=== PATIENT | female | born 1955 | race Caucasian/White ===

== ENCOUNTER 2020-10-17 10:05 | Outpatient (REF) | payer MEDICARE, SELFPAY ==
[2020-10-17 11:19] LABS: Hematocrit 37.9 % (37-47); Hemoglobin 12.9 g/dl (12.0-16.0); Mean Corpuscular Hemoglobin 30.8 pg (27.0-33.0); Mean Corpuscular Volume 90.5 fL (80-98); Platelet Count 267 X10*3/uL (160-400); Red Blood Count 4.19 X10*6/uL (4.20-5.50); Red Cell Distribution Width 12.7 % (11.0-16.0); White Blood Count 9.3 X10*3/uL (4.8-10.8)
[2020-10-17 11:50] LABS: Alanine Aminotransferase 40 U/L (0-31); Albumin Level 4.4 g/dL (3.5-5.0); Alkaline Phosphatase 100 U/L (39-117); Anion Gap 13 (12-20); Aspartate Amino Transferase 27 U/L (5-31); Bilirubin Total 0.7 mg/dL (0.0-1.0); Blood Urea Nitrogen 16 mg/dL (9-16); Calcium 10.2 mg/dL (8.4-10.2); Carbon Dioxide 29 mmol/L (22-29); Chloride 102 mmol/L (96-108); Cholesterol 154 mg/dL; Estimated Glomerular Filt Rate 55; Glucose Fasting 92 mg/dL (60-99); HDL Cholesterol 38 mg/dL; LDL Cholesterol Calculated 83 mg/dl; Potassium 3.5 mmol/l (3.3-5.1); Sodium 140 mmol/L (135-145); Total Protein 7.3 g/dL (6.5-8.0); Triglycerides 168 mg/dL
[2020-10-17 11:52] LABS: Glucose Urine UA NEG (NEG); Leukocyte Esterase Urine TRACE (NEG); Nitrite Urine NEG (NEG); PH 6.5 (5.0-8.0); Urine Blood NEG (NEG); Urine Ketones NEG (NEG); Urine Protein NEG (NEG-TRACE)
[2020-10-17 11:54] LABS: Appearance Urine HAZY; Color Urine YELLOW
[2020-10-17 11:56] LABS: Thyroid Stimulating Hormone 2.03 uIU/mL (0.32-4.0)
[2020-10-17 12:24] LABS: Bacteria Urine TRACE /LPF; RBC Urine 0-2 /HPF (0); Squamous Epithelial Cell Urine 1+ /LPF
== END 2020-10-17 10:06 | disposition home or self-care (01) ==
LOC: HO.HMGCLDS 10:05
PROVIDERS: PCP Internal Medicine; Visit Provider Internal Medicine
DX: E78.5 Hyperlipidemia, unspecified (principal); I10 Essential (primary) hypertension
CPT/HCPCS: 36415; 80053; 80061; 81001; 84443; 85027

== ENCOUNTER 2021-09-12 12:16 | Outpatient (REF) | payer MEDICARE, SELFPAY ==
--- NOTE | ~2021-09-12 | MM_ITS ---
EXAMINATION: MM SCREENING DIGITAL BREAST TOMOSYNTHESIS, BILATERAL CLINICAL INFORMATION: Screening. Asymptomatic. The lifetime risk of breast cancer based on the Tyrer-Cuzick Model is 8%. COMPARISON: Mammography: 05/11/2020, 09/18/2018, 09/08/2018, 12/05/2016 TECHNIQUE: Digital breast tomosynthesis is performed in both the craniocaudal and mediolateral oblique views along with computer-aided detection (CAD). Synthesized 2D images are generated from the tomosynthesis. FINDINGS: There are scattered areas of fibroglandular density (ACR BI-RADS breast composition Category b). There are no significant masses, abnormal calcifications, or other abnormalities. Parenchymal pattern is similar to prior studies. The axilla are unremarkable. The skin contours are smooth. MM/MM tomosynthesis screening BI IMPRESSION: No mammographic evidence of malignancy. ASSESSMENT: BI-RADS 1: Negative RECOMMENDATION: Routine annual mammography screening. This patient's information was entered into a reminder system with a target due date for their next mammogram.
== END 2021-09-12 12:17 | disposition home or self-care (01) ==
LOC: HO.MAMMO 12:16
PROVIDERS: PCP Internal Medicine; Visit Provider Internal Medicine
DX: Z12.31 Encounter for screening mammogram for malignant neoplasm of breast (principal)
CPT/HCPCS: 77063; 77067

== ENCOUNTER 2021-10-09 10:03 | Outpatient (REF) | payer MEDICARE, SELFPAY ==
[2021-10-09 11:54] LABS: Hematocrit 38.3 % (37.0-47.0); Hemoglobin 12.9 g/dl (12.0-16.0); Mean Corpuscular HGB Conc 33.7 g/dl (31.0-35.0); Mean Corpuscular Hemoglobin 30.4 pg (27.0-33.0); Mean Corpuscular Volume 90.3 fL (80.0-98.0); Platelet Count 303 X10*3/uL (160-400); Red Blood Count 4.24 X10*6/uL (4.20-5.50); Red Cell Distribution Width 13.1 % (11.0-16.0)
[2021-10-09 12:06] LABS: Appearance Urine CLEAR; Color Urine YELLOW; Glucose Urine UA NEG (NEG); Leukocyte Esterase Urine NEG (NEG); Nitrite Urine NEG (NEG); Urine Blood NEG (NEG); Urine Ketones NEG (NEG); Urine Protein NEG (NEG-TRACE)
[2021-10-09 12:16] LABS: Alanine Aminotransferase 31 U/L (0-31); Albumin Level 4.3 g/dL (3.5-5.0); Alkaline Phosphatase 97 U/L (39-117); Anion Gap 15 (12-20); Aspartate Amino Transferase 23 U/L (5-31); Bilirubin Total 0.9 mg/dL (0.0-1.0); Blood Urea Nitrogen 13 mg/dL (9-16); Calcium 10.3 mg/dL (8.4-10.2); Carbon Dioxide 28 mmol/L (22-29); Chloride 101 mmol/L (96-108); Cholesterol 154 mg/dL; Estimated Glomerular Filt Rate 57; Glucose Fasting 90 mg/dL (60-99); HDL Cholesterol 36 mg/dL; LDL Cholesterol Calculated 78 mg/dl; Potassium 3.3 mmol/L (3.3-5.1); Sodium 141 mmol/L (135-145); Total Protein 7.1 g/dL (6.5-8.0); Triglycerides 202 mg/dL
[2021-10-09 12:37] LABS: TSH reflex Free T4 1.76 uIU/mL (0.32-4.0)
[2021-10-09 12:42] LABS: RBC Urine 0 /HPF (0); Squamous Epithelial Cell Urine TRACE /LPF; WBC Urine 0-2 /HPF (0-4)
== END 2021-10-09 10:04 | disposition home or self-care (01) ==
LOC: HO.HMGCLDS 10:03
PROVIDERS: PCP Internal Medicine; Visit Provider Internal Medicine
DX: Z00.00 Encounter for general adult medical examination without abnormal findings (principal); E78.5 Hyperlipidemia, unspecified; I10 Essential (primary) hypertension
CPT/HCPCS: 36415; 80053; 80061; 81001; 84443; 85027

== ENCOUNTER 2022-02-08 12:53 | Outpatient (REF) | payer MEDICARE, SELFPAY ==
[2022-02-08 13:47] LABS: MANUAL DIFF FLAG NO
[2022-02-08 13:52] LABS: Basophils Percent Auto 0.4 % (0-2); Eosinophils Absolute Auto 0.2 X10*3/uL (0.0-0.4); Eosinophils Percent Auto 2.1 % (0-4); Hemoglobin 13.5 g/dl (12.0-16.0); Imm Gran Abs Auto 0.04 X10*3/uL (0.00-0.03); Imm Gran Pct Auto 0.5 % (0.0-0.4); Lymphocytes Absolute Auto 2.8 X10*3/uL (1.2-4.9); Lymphocytes Percent Auto 36.7 % (20-40); Mean Corpuscular HGB Conc 33.8 g/dl (31.0-35.0); Mean Corpuscular Hemoglobin 30.1 pg (27.0-33.0); Mean Corpuscular Volume 89.1 fL (80.0-98.0); Mean Platelet Volume 10.1 fL (9.4-12.3); Monocytes Absolute Auto 0.7 X10*3/uL (0.1-1.2); Monocytes Percent Auto 9.3 % (2-11); Neutrophils Absolute Auto 3.9 x10*3/uL (2.0-8.3); Platelet Count 277 X10*3/uL (160-400); Red Blood Count 4.49 X10*6/uL (4.20-5.50); Red Cell Distribution Width 12.6 % (11.0-16.0); White Blood Count 7.7 X10*3/uL (4.8-10.8)
[2022-02-08 13:54] LABS: Appearance Urine CLEAR; Color Urine YELLOW; Glucose Urine UA NEG (NEG); Leukocyte Esterase Urine NEG (NEG); Nitrite Urine NEG (NEG); Specific Gravity - Urine <= 1.005 (1.005-1.025); Urine Blood NEG (NEG); Urine Ketones NEG (NEG); Urine Protein NEG (NEG-TRACE)
[2022-02-08 14:23] LABS: Anion Gap 13 (12-20); Blood Urea Nitrogen 15 mg/dL (9-16); Calcium 10.3 mg/dL (8.4-10.2); Carbon Dioxide 31 mmol/L (22-29); Chloride 100 mmol/L (96-108); Estimated Glomerular Filt Rate > 60; Iron 88 mcg/dL (30-160); Potassium 3.3 mmol/L (3.3-5.1); Sodium 141 mmol/L (135-145)
[2022-02-08 14:34] LABS: Percent Iron Saturation 24 % (15-50); Total Iron Binding Capacity 370 mcg/dL (228-428); Unsaturated Iron Binding 282 ug/dL
[2022-02-08 14:41] LABS: Vitamin D 25-OH Total 32.9 ng/mL (>30)
[2022-02-08 14:53] LABS: RBC Urine 0 /HPF (0); Squamous Epithelial Cell Urine TRACE /LPF; WBC Urine 0 /HPF (0-4)
[2022-02-11 16:12] LABS: Calcium (PTHI) 10.2 mg/dL (8.6-10.4); PTHI 39 pg/mL (16-77)
== END 2022-02-08 12:54 | disposition home or self-care (01) ==
LOC: HO.HMGCLDS 12:53
PROVIDERS: PCP Internal Medicine; Visit Provider Internal Medicine Nephrology
DX: I10 Essential (primary) hypertension (principal)
CPT/HCPCS: 36415; 80051; 81001; 82306; 82310; 82565; 83540; 83970; 84520; 85025

== ENCOUNTER 2022-03-14 11:47 | Outpatient (REF) | payer MEDICARE, SELFPAY ==
[2022-03-14 14:20] LABS: Anion Gap 11 (12-20); Blood Urea Nitrogen 15 mg/dL (9-16); Calcium 10.1 mg/dL (8.4-10.2); Carbon Dioxide 30 mmol/L (22-29); Chloride 101 mmol/L (96-108); Estimated Glomerular Filt Rate > 60; Potassium 3.4 mmol/L (3.3-5.1); Sodium 139 mmol/L (135-145)
== END 2022-03-14 11:48 | disposition home or self-care (01) ==
LOC: HO.HMGCLDS 11:47
PROVIDERS: PCP Internal Medicine; Visit Provider Internal Medicine Nephrology
DX: I10 Essential (primary) hypertension (principal)
CPT/HCPCS: 36415; 80051; 82310; 82565; 84520

== ENCOUNTER 2022-09-18 14:16 | Outpatient (REF) | payer MEDICARE, SELFPAY ==
--- NOTE | ~2022-09-18 | MM_ITS ---
EXAMINATION: MM SCREENING DIGITAL BREAST TOMOSYNTHESIS, BILATERAL CLINICAL INFORMATION: Screening. Asymptomatic. The lifetime risk of breast cancer based on the Tyrer-Cuzick Model is 8%. COMPARISON: Mammography: 09/12/2021, 05/11/2020, 09/18/2018, 09/08/2018 TECHNIQUE: Digital breast tomosynthesis is performed in both the craniocaudal and mediolateral oblique views along with computer-aided detection (CAD). Synthesized 2D images are generated from the tomosynthesis. FINDINGS: There are scattered areas of fibroglandular density (ACR BI-RADS breast composition Category b). There are no significant masses, abnormal calcifications, or other abnormalities. Parenchymal pattern is similar to prior studies. There is no developing density or architectural abnormality. The axilla and skin contours are unremarkable. No significant changes. MM/MM tomosynthesis screening BI IMPRESSION: No mammographic evidence of malignancy. ASSESSMENT: BI-RADS 1: Negative RECOMMENDATION: Routine annual mammography screening. This patient's information was entered into a reminder system with a target due date for their next mammogram.
== END 2022-09-18 14:17 | disposition home or self-care (01) ==
LOC: HO.MAMMO 14:16
PROVIDERS: Visit Provider Internal Medicine
DX: Z12.31 Encounter for screening mammogram for malignant neoplasm of breast (principal)
CPT/HCPCS: 77063; 77067

== ENCOUNTER 2022-10-08 10:24 | Outpatient (REF) | payer MEDICARE, SELFPAY ==
[2022-10-08 11:32] LABS: MANUAL DIFF FLAG NO
[2022-10-08 11:51] LABS: Basophils Percent Auto 0.5 % (0-2); Eosinophils Absolute Auto 0.2 X10*3/uL (0.0-0.4); Eosinophils Percent Auto 2.4 % (0-4); Imm Gran Abs Auto 0.03 X10*3/uL (0.00-0.03); Imm Gran Pct Auto 0.4 % (0.0-0.4); Lymphocytes Absolute Auto 2.6 X10*3/uL (1.2-4.9); Lymphocytes Percent Auto 33.2 % (20-40); Mean Corpuscular HGB Conc 34.2 g/dl (31.0-35.0); Mean Corpuscular Hemoglobin 30.4 pg (27.0-33.0); Mean Platelet Volume 10.1 fL (9.4-12.3); Monocytes Absolute Auto 0.7 X10*3/uL (0.1-1.2); Monocytes Percent Auto 8.9 % (2-11); Neutrophils Absolute Auto 4.2 x10*3/uL (2.0-8.3); Neutrophils Percent Auto 54.6 % (45-73); Platelet Count 250 X10*3/uL (160-400); Red Blood Count 4.27 X10*6/uL (4.20-5.50); Red Cell Distribution Width 13.1 % (11.0-16.0); White Blood Count 7.8 X10*3/uL (4.8-10.8)
[2022-10-08 12:01] LABS: Appearance Urine Clear; Color Urine Yellow; Glucose Urine UA Negative (Negative); Leukocyte Esterase Urine Small (1+) (Negative); Nitrite Urine Negative (Negative); PH 7.5 (5.0-9.0); Specific Gravity - Urine <= 1.005 (1.005-1.025); UMIC TRIGGER UA YES; Urine Blood Negative (Negative); Urine Ketones Negative (Negative); Urine Protein Negative (Neg-Trace)
[2022-10-08 12:31] LABS: Alanine Aminotransferase 40 U/L (0-31); Albumin Level 4.3 g/dL (3.5-5.0); Alkaline Phosphatase 104 U/L (39-117); Anion Gap 15 (12-20); Aspartate Amino Transferase 29 U/L (5-31); Blood Urea Nitrogen 16 mg/dL (9-16); Calcium 9.8 mg/dL (8.4-10.2); Carbon Dioxide 28 mmol/L (22-29); Chloride 103 mmol/L (96-108); Cholesterol 146 mg/dL; Estimated Glomerular Filt Rate > 60; Glucose Fasting 90 mg/dL (60-99); HDL Cholesterol 38 mg/dL; LDL Cholesterol Calculated 73 mg/dl; Potassium 3.5 mmol/L (3.3-5.1); Sodium 142 mmol/L (135-145); TSH reflex Free T4 1.84 uIU/mL (0.32-4.0); Triglycerides 176 mg/dL; Vitamin D 25-OH Total 45.5 ng/mL (>30)
[2022-10-08 12:35] LABS: Hyaline Casts Urine 0-2 /LPF (0-2); RBC Urine 0-2 /HPF (0-2)
[2022-10-08 12:36] LABS: Renal Epithelial Cells Urine Present
[2022-10-08 12:41] LABS: Bacteria Urine None Seen (None Seen)
== END 2022-10-08 10:25 | disposition home or self-care (01) ==
LOC: HO.HMGCLDS 10:24
PROVIDERS: PCP Internal Medicine; Visit Provider Internal Medicine
DX: E78.5 Hyperlipidemia, unspecified (principal); I10 Essential (primary) hypertension
CPT/HCPCS: 36415; 80053; 80061; 81001; 82306; 84443; 85025

== ENCOUNTER 2022-12-03 12:58 | Outpatient (REF) | payer MEDICARE, SELFPAY ==
--- NOTE | ~2022-12-03 | MM_ITS ---
EXAMINATION: BONE DENSITOMETRY CLINICAL INDICATION: Asymptomatic menopausal state. COMPARISON: None (current study represents initial baseline exam). TECHNIQUE: Using a [employer] Online DXA System (software version: 13.1) manufactured by [employer], dual-energy x-ray absorptiometry was performed of the lumbar spine and left hip. The images are of good technical quality. Summary results are attached. FINDINGS: AP SPINE L1-L4: BMD 1.130 g/cm2, Z-score 0.9, T-score -0.4, normal. LEFT FEMUR, NECK: BMD 0.643 g/cm2, Z-score -1.5, T-score -2.8, osteoporosis. LEFT FEMUR, TOTAL: BMD 0.806 g/cm2, Z-score -0.5, T-score -1.6, osteopenia. IDENTIFIED RISK FACTORS: Menopause. HISTORY OF FRACTURE: None listed. MEDICATIONS: Calcium supplement and/or multivitamin. Vitamin D. MM/XR DEXA axial skeleton IMPRESSION: 1. DIAGNOSIS: Osteoporosis based on the lowest T-score value of -2.8 in the femoral neck applying World Health Organization criteria. 2. 10-YEAR FRACTURE RISK PREDICTION, FRAX: According to the guidelines, FRAX calculation should only be performed on patients in the osteopenia bone density category.?Therefore, FRAX was not performed on this patient.? 3. Treatment Recommendations: NOF guidelines recommend consideration for treatment in postmenopausal women and men age 50 and older presenting with the following: -A hip or vertebral (clinical or morphometric) fracture. -T-score less than or equal to -2.5 at the femoral neck or spine after appropriate evaluation to exclude secondary causes. -Low bone mass at the hip or spine and a 10-year fracture probability by FRAX of greater than or equal to 3% for hip fracture or greater than or equal to 20% for major osteoporotic fracture based on the [place] adapted WHO algorithm. 4. Other Recommendations: All treatment decisions require clinical judgment and consideration of individual patient factors, including patient preferences, comorbidities, previous drug use, risk factors not captured in the FRAX model (e.g. frailty, falls, vitamin D deficiency, increased bone turnover, interval significant decline in bone density) and possible under or overestimation of fracture risk by FRAX. Additional medical evaluation for secondary cause of low bone mineral density may be appropriate. FUTURE SCAN RECOMMENDATION: People with diagnosed cases of osteoporosis or at high risk for fracture should have regular bone mineral density tests. For patients eligible for Medicare, routine testing is allowed once every 2 years. The testing frequency can be increased to one year for patients who have rapidly progressing disease, those who are receiving or discontinuing medical therapy to restore bone mass, or have additional risk factors.
== END 2022-12-03 12:59 | disposition home or self-care (01) ==
LOC: HO.MAMMO 12:58
PROVIDERS: PCP Internal Medicine; Visit Provider Internal Medicine
DX: Z13.820 Encounter for screening for osteoporosis (principal); Z78.0 Asymptomatic menopausal state
CPT/HCPCS: 77080

== ENCOUNTER 2022-12-03 13:36 | Outpatient (REF) | payer MEDICARE, SELFPAY ==
[2022-12-03 16:48] LABS: Alanine Aminotransferase 38 U/L (0-31); Albumin Level 4.4 g/dL (3.5-5.0); Alkaline Phosphatase 117 U/L (39-117); Aspartate Amino Transferase 30 U/L (5-31); Bilirubin Direct 0.3 mg/dL (0.0-0.5); Total Protein 7.2 g/dL (6.5-8.0)
[2022-12-04 08:10] LABS: HBc Num1 0.08 S/CO (0.00-0.79); HBsAGNum1 0.42 S/CO (0.00-0.99); Hepatitis A Antibody IgM 0.11 Index (0-0.79); Hepatitis B Core Antibody Nonreactive (Nonreactive); Hepatitis B Surface Antigen Negative (Negative); ~HepC Num1 0.06 S/CO (0.00-0.79); ~Hepatitis A Antibody IgM Nonreactive (Nonreactive); ~Hepatitis B Surface Antibody NONREACTIVE (Nonreactive); ~Hepatitis C Antibody Nonreactive (Nonreactive)
== END 2022-12-03 13:37 | disposition home or self-care (01) ==
LOC: HO.HMGCLDS 13:36
PROVIDERS: PCP Internal Medicine; Visit Provider Internal Medicine
DX: Z00.00 Encounter for general adult medical examination without abnormal findings (principal); I10 Essential (primary) hypertension; E78.5 Hyperlipidemia, unspecified; Z78.0 Asymptomatic menopausal state; Z11.59 Encounter for screening for other viral diseases
CPT/HCPCS: 36415; 80076; 86704; 86706; 86709; 86803; 87340

== ENCOUNTER 2023-02-06 10:30 | Outpatient (REF) | payer MEDICARE, SELFPAY ==
[2023-02-06 14:14] LABS: Appearance Urine Clear; Color Urine Yellow; Glucose Urine UA Negative (Negative); Leukocyte Esterase Urine Moderate (2+) (Negative); Nitrite Urine Negative (Negative); UMIC TRIGGER UA YES; Urine Blood Negative (Negative); Urine Ketones Trace mg/dL (Negative); Urine Protein Trace mg/dL (Neg-Trace)
[2023-02-06 14:31] LABS: Bacteria Urine Trace (None Seen); Hyaline Casts Urine 0-2 /LPF (0-2); RBC Urine 0-2 /HPF (0-2); WBC Urine 21-50 /HPF (0-5)
[2023-02-06 14:58] LABS: Anion Gap 13 (12-20); Blood Urea Nitrogen 14 mg/dL (9-16); Calcium 9.8 mg/dL (8.4-10.2); Carbon Dioxide 30 mmol/L (22-29); Chloride 106 mmol/L (96-108); Estimated Glomerular Filt Rate 60; Potassium 3.8 mmol/L (3.3-5.1); Sodium 145 mmol/L (135-145)
[2023-02-06 15:11] LABS: Creatinine Urine 221.26 mg/dL; Protein/Creatinine Ratio, Ur 0.07 (<0.2); Total Protein Urine Random 16 mg/dL (<12)
[2023-02-06 15:17] LABS: Vitamin D 25-OH Total 41.8 ng/mL (>30)
[2023-02-10 14:04] LABS: Calcium (PTHI) 10.2 mg/dL (8.6-10.4); PTHI 21 pg/mL (16-77)
== END 2023-02-06 10:31 | disposition home or self-care (01) ==
LOC: HO.HMGCLDS 10:30
PROVIDERS: PCP Internal Medicine; Visit Provider Internal Medicine Nephrology
DX: E87.5 Hyperkalemia (principal); E55.9 Vitamin D deficiency, unspecified
CPT/HCPCS: 36415; 80051; 81001; 82306; 82310; 82565; 83970; 84156; 84520

== ENCOUNTER 2023-10-20 11:11 | Outpatient (REF) | payer MEDICARE, SELFPAY | END 2023-10-20 11:12 | disposition home or self-care (01) | LOC: HO.MAMMO 11:11 | PROVIDERS: PCP Internal Medicine; Visit Provider Internal Medicine | DX: Z12.31 Encounter for screening mammogram for malignant neoplasm of breast (principal) | CPT/HCPCS: 77063; 77067 ==

== ENCOUNTER → 2023-10-20 11:15 | Outpatient (BNV) | payer MEDICARE, SELFPAY | PROVIDERS: PCP Internal Medicine; Visit Provider Radiology Diagnostic Radiology | DX: Z12.31 Encounter for screening mammogram for malignant neoplasm of breast (principal) | CPT/HCPCS: 77063; 77067 ==

== ENCOUNTER 2024-02-06 10:48 | Outpatient (REF) | payer MEDICARE, SELFPAY ==
[2024-02-06 13:18] LABS: MANUAL DIFF FLAG NO
[2024-02-06 13:36] LABS: Basophils Percent Auto 0.5 % (0-2); Eosinophils Absolute Auto 0.2 X10*3/uL (0.0-0.4); Eosinophils Percent Auto 2.3 % (0-4); Hematocrit 38.9 % (37.0-47.0); Hemoglobin 13.2 g/dl (12.0-16.0); Imm Gran Abs Auto 0.04 X10*3/uL (0.00-0.03); Imm Gran Pct Auto 0.5 % (0.0-0.4); Lymphocytes Absolute Auto 2.9 X10*3/uL (1.2-4.9); Lymphocytes Percent Auto 36.7 % (20-40); Mean Corpuscular HGB Conc 33.9 g/dl (31.0-35.0); Mean Corpuscular Volume 88.4 fL (80.0-98.0); Mean Platelet Volume 10.2 fL (9.4-12.3); Monocytes Absolute Auto 0.7 X10*3/uL (0.1-1.2); Monocytes Percent Auto 9.2 % (2-11); Neutrophils Percent Auto 50.8 % (45-73); Platelet Count 266 X10*3/uL (160-400); Red Cell Distribution Width 12.8 % (11.0-16.0); White Blood Count 7.9 X10*3/uL (4.8-10.8)
[2024-02-06 13:37] LABS: Appearance Urine Clear; Color Urine Yellow; Glucose Urine UA Negative (Negative); Leukocyte Esterase Urine Moderate (2+) (Negative); Nitrite Urine Negative (Negative); PH 7.5 (5.0-9.0); UMIC TRIGGER UA YES; Urine Blood Negative (Negative); Urine Ketones Negative (Negative); Urine Protein Negative (Neg-Trace)
[2024-02-06 13:41] LABS: Bacteria Urine None Seen (None Seen); Hyaline Casts Urine 0-2 /LPF (0-2); RBC Urine 0-2 /HPF (0-2); Squamous Epithelial Cell Urine 0-2 /HPF (0-2)
[2024-02-06 13:55] LABS: Anion Gap 13 (12-20); Blood Urea Nitrogen 18 mg/dL (9-16); Calcium 9.9 mg/dL (8.4-10.2); Carbon Dioxide 27 mmol/L (22-29); Chloride 104 mmol/L (96-108); Estimated Glomerular Filt Rate 55; Iron 94 mcg/dL (30-160); Percent Iron Saturation 31 % (15-50); Potassium 3.3 mmol/L (3.3-5.1); Sodium 141 mmol/L (135-145); Total Iron Binding Capacity 308 mcg/dL (228-428); Unsaturated Iron Binding 214 ug/dL
[2024-02-06 14:02] LABS: Ferritin 59 ng/mL (10-250); Vitamin D 25-OH Total 98.4 ng/mL (>30)
[2024-02-06 14:10] LABS: Parathyroid Hormone Intact 58.3 pg/mL (8.7-77.1)
[2024-02-06 14:32] LABS: Creatinine Urine 89.47 mg/dL; Total Protein Urine Random < 7 mg/dL (<12)
== END 2024-02-06 10:49 | disposition home or self-care (01) ==
LOC: HO.HMGCLDS 10:48
PROVIDERS: PCP Internal Medicine; Visit Provider Internal Medicine Nephrology
DX: I10 Essential (primary) hypertension (principal); E55.9 Vitamin D deficiency, unspecified; D50.9 Iron deficiency anemia, unspecified
CPT/HCPCS: 36415; 80051; 81001; 82306; 82310; 82565; 82570; 82728; 83540; 83970; 84156; 84520; 84550; 85025

== ENCOUNTER 2024-03-10 10:07 | Outpatient (REF) | payer MEDICARE, SELFPAY ==
[2024-03-10 13:12] LABS: MANUAL DIFF FLAG NO
[2024-03-10 13:27] LABS: Basophils Percent Auto 0.5 % (0-2); Eosinophils Absolute Auto 0.2 X10*3/uL (0.0-0.4); Eosinophils Percent Auto 2.7 % (0-4); Hematocrit 39.9 % (37.0-47.0); Hemoglobin 13.8 g/dl (12.0-16.0); Imm Gran Abs Auto 0.02 X10*3/uL (0.00-0.03); Imm Gran Pct Auto 0.3 % (0.0-0.4); Lymphocytes Percent Auto 41.5 % (20-40); Mean Corpuscular HGB Conc 34.6 g/dl (31.0-35.0); Mean Corpuscular Hemoglobin 30.7 pg (27.0-33.0); Mean Corpuscular Volume 88.9 fL (80.0-98.0); Mean Platelet Volume 10.1 fL (9.4-12.3); Monocytes Absolute Auto 0.7 X10*3/uL (0.1-1.2); Monocytes Percent Auto 9.1 % (2-11); Neutrophils Absolute Auto 3.3 x10*3/uL (2.0-8.3); Neutrophils Percent Auto 45.9 % (45-73); Platelet Count 249 X10*3/uL (160-400); Red Blood Count 4.49 X10*6/uL (4.20-5.50); Red Cell Distribution Width 13.1 % (11.0-16.0); White Blood Count 7.3 X10*3/uL (4.8-10.8)
[2024-03-10 13:32] LABS: Appearance Urine Clear; Color Urine Yellow; Glucose Urine UA Negative (Negative); Leukocyte Esterase Urine Moderate (2+) (Negative); Nitrite Urine Negative (Negative); UMIC TRIGGER UA YES; Urine Blood Negative (Negative); Urine Ketones Negative (Negative); Urine Protein Negative (Neg-Trace)
[2024-03-10 13:43] LABS: Bacteria Urine None Seen (None Seen); Hyaline Casts Urine 0-2 /LPF (0-2); RBC Urine 0-2 /HPF (0-2)
[2024-03-10 14:07] LABS: Anion Gap 13 (12-20); Blood Urea Nitrogen 14 mg/dL (9-16); Calcium 9.9 mg/dL (8.4-10.2); Carbon Dioxide 25 mmol/L (22-29); Chloride 107 mmol/L (96-108); Estimated Glomerular Filt Rate > 60; Ferritin 47 ng/mL (10-250); Iron 97 mcg/dL (30-160); Percent Iron Saturation 32 % (15-50); Potassium 3.6 mmol/L (3.3-5.1); Sodium 141 mmol/L (135-145); Total Iron Binding Capacity 306 mcg/dL (228-428); Unsaturated Iron Binding 209 ug/dL; Uric Acid 4.7 mg/dL (2.4-5.7); Vitamin D 25-OH Total 69.8 ng/mL (>30)
[2024-03-10 14:12] LABS: Parathyroid Hormone Intact 47.9 pg/mL (8.7-77.1)
[2024-03-10 14:29] LABS: Creatinine Urine 173.16 mg/dL; Protein/Creatinine Ratio, Ur 0.07 (<0.2); Total Protein Urine Random 12 mg/dL (<12)
== END 2024-03-10 10:08 | disposition home or self-care (01) ==
LOC: HO.HMGCLDS 10:07
PROVIDERS: PCP Internal Medicine; Visit Provider Internal Medicine Nephrology
DX: D50.9 Iron deficiency anemia, unspecified (principal); I10 Essential (primary) hypertension; E55.9 Vitamin D deficiency, unspecified
CPT/HCPCS: 36415; 80051; 81001; 82306; 82310; 82565; 82570; 82728; 83540; 83970; 84156; 84520; 84550; 85025

== ENCOUNTER 2024-03-30 09:45 | Outpatient (REF) | payer MEDICARE, SELFPAY ==
[2024-03-30 13:10] LABS: MANUAL DIFF FLAG NO
[2024-03-30 13:33] LABS: Basophils Percent Auto 0.4 % (0-2); Eosinophils Absolute Auto 0.2 X10*3/uL (0.0-0.4); Eosinophils Percent Auto 2.4 % (0-4); Hematocrit 40.6 % (37.0-47.0); Hemoglobin 13.9 g/dl (12.0-16.0); Imm Gran Abs Auto 0.02 X10*3/uL (0.00-0.03); Imm Gran Pct Auto 0.3 % (0.0-0.4); Lymphocytes Absolute Auto 2.7 X10*3/uL (1.2-4.9); Lymphocytes Percent Auto 38.4 % (20-40); Mean Corpuscular HGB Conc 34.2 g/dl (31.0-35.0); Mean Corpuscular Hemoglobin 30.8 pg (27.0-33.0); Mean Corpuscular Volume 89.8 fL (80.0-98.0); Monocytes Absolute Auto 0.6 X10*3/uL (0.1-1.2); Neutrophils Absolute Auto 3.5 x10*3/uL (2.0-8.3); Neutrophils Percent Auto 49.5 % (45-73); Platelet Count 224 X10*3/uL (160-400); Red Blood Count 4.52 X10*6/uL (4.20-5.50); Red Cell Distribution Width 12.9 % (11.0-16.0)
[2024-03-30 13:34] LABS: Basophils Absolute Auto 0.1 X10*3/uL (0.0-0.2); Basophils Percent Auto 0.7 % (0-2); Eosinophils Absolute Auto 0.2 X10*3/uL (0.0-0.4); Hematocrit 40.7 % (37.0-47.0); Hemoglobin 13.8 g/dl (12.0-16.0); Imm Gran Abs Auto 0.01 X10*3/uL (0.00-0.03); Imm Gran Pct Auto 0.1 % (0.0-0.4); Lymphocytes Absolute Auto 2.8 X10*3/uL (1.2-4.9); Lymphocytes Percent Auto 38.5 % (20-40); Mean Corpuscular HGB Conc 33.9 g/dl (31.0-35.0); Mean Corpuscular Hemoglobin 30.3 pg (27.0-33.0); Mean Corpuscular Volume 89.5 fL (80.0-98.0); Monocytes Absolute Auto 0.6 X10*3/uL (0.1-1.2); Monocytes Percent Auto 8.1 % (2-11); Neutrophils Absolute Auto 3.7 x10*3/uL (2.0-8.3); Neutrophils Percent Auto 49.6 % (45-73); Platelet Count 230 X10*3/uL (160-400); Red Blood Count 4.55 X10*6/uL (4.20-5.50); White Blood Count 7.4 X10*3/uL (4.8-10.8)
[2024-03-30 13:55] LABS: Appearance Urine Clear; Color Urine Yellow; Glucose Urine UA Negative (Negative); Leukocyte Esterase Urine Trace (Negative); Nitrite Urine Negative (Negative); PH 7.5 (5.0-9.0); Specific Gravity - Urine <= 1.005 (1.005-1.025); UMIC TRIGGER UA YES; Urine Blood Negative (Negative); Urine Ketones Negative (Negative); Urine Protein Negative (Neg-Trace)
[2024-03-30 13:56] LABS: Anion Gap 15 (12-20); Blood Urea Nitrogen 11 mg/dL (9-16); Calcium 10.1 mg/dL (8.4-10.2); Carbon Dioxide 23 mmol/L (22-29); Chloride 109 mmol/L (96-108); Estimated Glomerular Filt Rate > 60; Potassium 3.8 mmol/L (3.3-5.1); Sodium 143 mmol/L (135-145)
[2024-03-30 13:58] LABS: Iron 89 mcg/dL (30-160); Percent Iron Saturation 27 % (15-50); Total Iron Binding Capacity 333 mcg/dL (228-428); Unsaturated Iron Binding 244 ug/dL; Uric Acid 3.7 mg/dL (2.4-5.7)
[2024-03-30 14:01] LABS: Alanine Aminotransferase 26 U/L (0-31); Albumin Level 4.3 g/dL (3.5-5.0); Alkaline Phosphatase 89 U/L (39-117); Anion Gap 15 (12-20); Aspartate Amino Transferase 22 U/L (5-31); Bilirubin Total 0.8 mg/dL (0.0-1.0); Blood Urea Nitrogen 10 mg/dL (9-16); Calcium 9.8 mg/dL (8.4-10.2); Carbon Dioxide 23 mmol/L (22-29); Chloride 108 mmol/L (96-108); Cholesterol 140 mg/dL (<200); Estimated Glomerular Filt Rate > 60; Glucose Fasting 91 mg/dL (60-99); HDL Cholesterol 39 mg/dL (>40); LDL Cholesterol Calculated 71 mg/dL (<100); Potassium 3.7 mmol/L (3.3-5.1); Sodium 142 mmol/L (135-145); Total Protein 7.4 g/dL (6.5-8.0); Triglycerides 151 mg/dL (<150)
[2024-03-30 14:04] LABS: Bacteria Urine None Seen (None Seen); Hyaline Casts Urine 0-2 /LPF (0-2); RBC Urine 0-2 /HPF (0-2); Squamous Epithelial Cell Urine 0-2 /HPF (0-2); WBC Urine 0-5 /HPF (0-5)
[2024-03-30 14:09] LABS: Vitamin D 25-OH Total 53.1 ng/mL (>30)
[2024-03-30 14:16] LABS: Parathyroid Hormone Intact 72.4 pg/mL (8.7-77.1)
[2024-03-30 14:17] LABS: Ferritin 38 ng/mL (10-250); Vitamin D 25-OH Total 67.8 ng/mL (>30)
[2024-03-30 14:21] LABS: Creatinine Urine 33.82 mg/dL; Total Protein Urine Random < 7 mg/dL (<12)
[2024-03-30 14:37] LABS: Albumin Level 4.4 g/dL (3.5-5.0); Anion Gap 15 (12-20); Blood Urea Nitrogen 11 mg/dL (9-16); Calcium 9.9 mg/dL (8.4-10.2); Carbon Dioxide 22 mmol/L (22-29); Chloride 109 mmol/L (96-108); Estimated Glomerular Filt Rate > 60; Glucose Random 89 mg/dL (60-115); Phosphorus 2.7 mg/dL (2.7-4.5); Potassium 3.8 mmol/L (3.3-5.1); Sodium 142 mmol/L (135-145)
[2024-04-03 11:53] LABS: Renin 0.19 ng/mL/h (0.25-5.82)
== END 2024-03-30 09:46 | disposition home or self-care (01) ==
LOC: HO.HMGCLDS 09:45
PROVIDERS: PCP Internal Medicine; Referring Provider Internal Medicine Nephrology; Visit Provider Internal Medicine
DX: F41.9 Anxiety disorder, unspecified (principal); F32.9 Major depressive disorder, single episode, unspecified; I10 Essential (primary) hypertension; E55.9 Vitamin D deficiency, unspecified; D50.9 Iron deficiency anemia, unspecified; Z78.0 Asymptomatic menopausal state
CPT/HCPCS: 36415; 80051; 80053; 80061; 81001; 81003; 82040; 82088; 82306; 82310; 82565; 82570; 82728; 82947; 83540; 83970; 84100; 84156; 84244; 84443; 84520; 84550; 85025

== ENCOUNTER 2024-04-01 12:57 | Outpatient (AMB) | payer MEDICARE, SELFPAY ==
[2024-04-01 13:02] VITALS: BP 134/80; PULSE 75; O2SAT 98; BMI 30.5
--- NOTE | 2024-04-01 13:02 | MHC.PC.OV ---
Vital Signs 04/01/24 13:02 Height 5 ft 2 in Weight 167 lb BMI 30.5 BP 134/80 Blood Pressure Location Lt brachial Position Sitting Pulse 75 Pulse Source Pulse Oximeter Pulse Oximetry (%) 98 Oxygen Delivery Method Room Air Intake Visit Reasons: Annual PE, Discuss/Bill ACP Intake Note: Pt is here today for PE. Allergies No Known Allergies Allergy (Verified 04/01/24 13:08) Medication List - Last Reconciled 04/01/24 by Radha Gao MD alendronate 70 mg PO QWEEK amlodipine 5 mg PO DAILY atorvastatin 80 mg PO DAILY flu vacc [id number](65yr up)-PF mL IM losartan 100 mg PO DAILY metoprolol succinate ER 200 mg PO DAILY spironolactone 25 mg PO DAILY Tobacco use date assessed: 04/01/24 Fall risk assessment: No Falls in past year Last assessed Fall Risk: 04/01/24 Dental Screening Dental Screen Date: 04/01/24 Did you have a dental visit in the last 12 months?: Yes Did you have a dental problem in the last 6 months where you did not have access to dental care?: No Was dental information given to patient?: Patient has dentist HPI Annual PE, Discuss/Bill ACP HPI Details Initiated the conversation about Advanced Directives. Advanced Directives help? patients prepare for current and future decisions about their medical treatment? and place of care. Discussed with patient that it is a process where a patients? current condition and prognosis are reviewed, their wishes for information? regarding their illness are elicited, and likely medical dilemmas are presented? and options discussed. The form can be amended as needed, reviewed yearly and? make changes as needed IPPE/AWV ? year old presents? for her ? Annual? Wellness Visit, initial visit.? Medical / Social History Reviewed? Past Medical History ?Yes? . ? [place]? of Care / Care Team list updated ?Yes . ? Surgical/Hospitalization? History ?Yes . ? Current Medications? (including OTC and supplements) ?Yes . ? Family History ?Yes? . ? Tobacco? Control form ?Yes . ? AUDIT-C (Alcohol use) form? ?Yes . ? Illicit drug use in Social? History ?Yes . ? Current diagnosis of? depression? ?No ? Appropriate PHQ2/PHQ9? completed ?Yes . ? Data entered by ?Medical? Pheresis Nurse and reviewed by provider ? Fall Risk ? Fall? History? Have you had any falls with? injury in the past year? ?No . ? Have you had two or more? falls in the past year? ?No . ? Fall Risk Assessment: ?No? falls in the past year . ? HRA filled out by? the patient, reviewed by Provider and scanned. ? IPPE/AWV ? Balance? [place]? ?Yes . ? Tandem? walk ?Yes . ? Walk and? Turn ?Yes . ? Rise from? sit to stand ?Yes . ?Vision? Corrective? lens ?Yes ? Vision? screen ? Up-to-date, has an appointment [] for vision? screening and glaucoma screening ?Hearing? Whisper? test ?pass .? Initiated the conversation about Advanced Directives. Advanced Directives help? patients prepare for current and future decisions about their medical treatment? and place of care. Discussed with patient that it is a process where a patients? current condition and prognosis are reviewed, their wishes for information? regarding their illness are elicited, and likely medical dilemmas are presented? and options discussed. The form can be amended as needed, reviewed yearly and? make changes as needed Written? Plan?Completed. See Patient? Documents. [facility] Medical History (Updated 04/01/24 @ 15:03 by Radha Gao MD) Mammogram normal Normal colonoscopy Annual physical exam Normal Pap smear Anxiety and depression Hyperlipidemia Migraines HTN (hypertension) Surgical History H/O colonoscopy No pertinent past surgical history Family History Father Type 2 diabetes mellitus HTN (hypertension) Stroke Mother No problems noted. Brother HTN (hypertension) Alcoholism Brother History of heart attack Brother Cancer Maternal Grandfather Alcoholism Son No problems noted. Brother No problems noted. Social History Housing: House Patient Tobacco Use Status: Never used Tobacco e-Cigarette/Vaping Use: Never Used service: No Current occupational status: employed Cognitive needs: No Hearing needs: No Vision needs: Yes Questionnaire PHQ-9 Over the last 2 weeks, how often have you been bothered by any of the following problems? 1. Little interest or pleasure in doing things: not at all 2. Feeling down, depressed, or hopeless: not at all 3. Trouble falling or staying asleep, or sleeping too much: several days 4. Feeling tired or having little energy: not at all 5. Poor appetite or overeating: not at all 6. Feeling bad about yourself - or that you are a failure or have let yourself or your family down: not at all 7. Trouble concentrating on things, such as reading the newspaper or watching television: not at all 8. Moving or speaking so slowly that other people could have noticed. Or the opposite - being so fidgety or restless that you have been moving around a lot more than usual: not at all 9. Thoughts that you would be better off or of hurting yourself in some way: not at all Total score: 1 Depression Screening Interpretation: Negative Depression Screening Done: Yes Source: Developed by Drs. Manas Reddy, Bessy Hopkins, Kimani Stuart and colleagues, with an educational charly from [employer]. Thrive Questionnaire Date Thrive assessed: 04/01/24 I am a: Patient What is your living situation today?: I have a steady place to live Within the past 12 months, did the food you bought not last and you didn't have the money to get more?: Never true Within the past 12 months, did you worry whether your food would run out before you got money to buy more?: Never true Do you have trouble paying for medicines?: No Do you have trouble getting transportation to medical appointments?: No Do you have trouble paying your heating and electricity bill?: No Do you have trouble taking care of your child, family member or friend?: No Do you have trouble with day-to-day activities such as bathing, preparing meals, shopping, managing finances, etc.?: No Are you currently unemployed and looking for a job?: No Are you interested in more education?: No Please select the resources that you would like help with: None THRIVE Score: 0 AUDIT C Alcohol Use Questionnaire (AUDIT-C) 1. How often do you have a drink containing alcohol?: Monthly or less 2. How many drinks containing alcohol do you have on a typical day when you are drinking?: 1 or 2 3. How often do you have six or more drinks on one occasion?: Never Total Score: 1 JESSICA-7 AMB Questionnaire JESSICA-7 Date JESSICA - 7 assessed: 04/01/24 Feeling nervous, anxious, or on edge: 1 = Several days Not being able to stop or control worryin = Several days Worrying too much about different things: 1 = Several days Trouble relaxin = Several days Being so restless that it is hard to sit still: 1 = Several days Becoming easily annoyed or irritable: 1 = Several days Feeling afraid as if something awful might happen: 0 = Not at all Total JESSICA-7 score (0-4 normal; 5-9 mild; 10-14 moderate; 15-21 severe): 6 Source: Developed by Drs. Manas Reddy, Bessy Hopkins, Kimani Stuart and colleagues, with an educational charly from [employer]. Review of Systems Const All systems reviewed & are unremarkable except as noted in HPI and below Reports no additional complaints Eyes Reports no additional complaints ENT Reports no additional complaints Card Reports no additional complaints Resp Reports no additional complaints GI Reports no additional complaints Reports no additional complaints Musc Reports no additional complaints Physical exam (Primary Care) Vital Signs: Last Vital Signs Pulse 75 04/01/24 13:02 BP 134/80 04/01/24 13:02 Pulse Ox 98 04/01/24 13:02 Oxygen Delivery Method Room Air 04/01/24 13:02 BMI result Body Mass Index 30.5 Tobacco/Smoking Status: Tobacco use Status Tobacco use date assessed 04/01/24 04/01/24 13:12 Patient Tobacco Use Status Never used Tobacco 04/01/24 13:03 e-Cigarette/Vaping Use Never Used 04/01/24 13:03 PHQ-9: PHQ-9 Score PHQ-9: Total score 1 04/01/24 13:23 Depression Screening Interpretation: Negative Thrive Assessment: Date of Thrive Assessment Date Thrive assessed 04/01/24 04/01/24 13:12 Const General: no acute distress HENMT Head: Yes normal to inspection Face and sinus: Yes normal facial exam Throat: Yes posterior oropharynx normal Eyes General: appearance normal, both eyes and all related structures Neck Neck: Yes no lymphadenopathy and Yes supple Resp Effort & Inspection: normal respiratory effort Auscultation: clear to auscultation bilaterally Cardio Rhythm: regular rhythm Heart sounds: S1 normal heart sound present and S2 normal heart sound present GI Inspection: Yes normal to inspection Percussion: Yes normal to percussion Auscultation: normal bowel sounds Assessment and Plan Assessment & Plan (1) HTN (hypertension): Comment: f/u with nephrology, hydrochlorothiazide was discontinued because of hyperkalemia 03/17 Code(s): I10 - Essential (primary) hypertension Plan: Blood pressure is elevated and spironolactone 25 will be added to current medications. She was advised to stop taking potassium supplement and check BMP in 2 weeks. Patient will follow-up in 1 month (2) Osteoporosis: Comment: DEXA 12/16 T score -2.8 L femoral neck, started Fosamax 01/16 Code(s): M81.0 - Age-related osteoporosis without current pathological fracture Plan: Continue vitamin-D Fosamax and regular exercise (3) Hyperlipidemia: Code(s): E78.5 - Hyperlipidemia, unspecified Plan: Continue atorvastatin (4) Annual physical exam: Code(s): Z00.00 - Encounter for general adult medical examination without abnormal findings Plan: Well-balanced diet regular physical activity discussed with the patient she is up-to-date with mammogram colonoscopy Orders: Orders Basic Metabolic Panel 2 Weeks I10 - Essential (primary) hypertension Medications: New spironolactone 25 mg PO DAILY 30 tabs 2RF Coding Level of Care Code Est Pt Prev Care >65y(57334) Diagnoses HTN (hypertension) I10 Osteoporosis M81.0 Hyperlipidemia E78.5 Annual physical exam Z00.00
== END 2024-04-01 14:00 | disposition home or self-care (01) ==
PROVIDERS: Visit Provider Internal Medicine
DX: I10 Essential (primary) hypertension (principal); M81.0 Age-related osteoporosis without current pathological fracture; E78.5 Hyperlipidemia, unspecified; Z00.00 Encounter for general adult medical examination without abnormal findings
CPT/HCPCS: 99397

== ENCOUNTER 2024-06-03 09:46 | Outpatient (REF) | payer MEDICARE, SELFPAY ==
[2024-06-03 13:44] LABS: Anion Gap 14 (12-20); Blood Urea Nitrogen 18 mg/dL (9-16); Calcium 10.4 mg/dL (8.4-10.2); Carbon Dioxide 24 mmol/L (22-29); Chloride 106 mmol/L (96-108); Estimated Glomerular Filt Rate 54; Glucose Random 88 mg/dL (60-115); Potassium 4.1 mmol/L (3.3-5.1); Sodium 140 mmol/L (135-145)
== END 2024-06-03 09:47 | disposition home or self-care (01) ==
LOC: HO.HMGCLDS 09:46
PROVIDERS: PCP Internal Medicine; Visit Provider Internal Medicine
DX: I10 Essential (primary) hypertension (principal)
CPT/HCPCS: 36415; 80048

== ENCOUNTER 2024-06-07 12:50 | Outpatient (AMB) | payer MEDICARE, SELFPAY ==
--- NOTE | 2024-06-07 12:51 | MHC.PC.OV ---
Vital Signs 06/07/24 12:52 Height 5 ft 2 in Weight 165 lb BMI 30.2 BP 134/80 Blood Pressure Location Rt brachial Position Sitting Pulse 77 Pulse Source Pulse Oximeter Pulse Oximetry (%) 96 Oxygen Delivery Method Room Air Intake Visit Reasons: 6weeks follow up Intake Note: Pt is here today for 6 weeks follow up visit. Allergies No Known Allergies Allergy (Verified 06/07/24 12:53) Medication List - Last Reconciled 06/07/24 by Radha Gao MD alendronate 70 mg PO QWEEK amlodipine 5 mg PO DAILY atorvastatin 80 mg PO DAILY flu vacc [id number](65yr up)-PF mL IM losartan 100 mg PO DAILY metoprolol succinate ER 200 mg PO DAILY spironolactone 25 mg PO DAILY Tobacco use date assessed: 04/01/24 Dental Screening Dental Screen Date: 04/01/24 HPI 6weeks follow up HPI Details Pt presents for f/u HTN, hyperlipid, osteoporosis, stable on meds. [facility] Medical History (Updated 06/07/24 @ 13:26 by Radha Gao MD) Mammogram normal Normal colonoscopy Annual physical exam Normal Pap smear Anxiety and depression Hyperlipidemia Migraines HTN (hypertension) Surgical History H/O colonoscopy No pertinent past surgical history Family History Father Type 2 diabetes mellitus HTN (hypertension) Stroke Mother No problems noted. Brother HTN (hypertension) Alcoholism Brother History of heart attack Brother Cancer Maternal Grandfather Alcoholism Son No problems noted. Brother No problems noted. Social History Housing: House Patient Tobacco Use Status: Never used Tobacco e-Cigarette/Vaping Use: Never Used service: No Current occupational status: employed Cognitive needs: No Hearing needs: No Vision needs: Yes Questionnaire PHQ-9 Over the last 2 weeks, how often have you been bothered by any of the following problems? 1. Little interest or pleasure in doing things: not at all 2. Feeling down, depressed, or hopeless: not at all 3. Trouble falling or staying asleep, or sleeping too much: not at all 4. Feeling tired or having little energy: not at all 5. Poor appetite or overeating: not at all 7. Trouble concentrating on things, such as reading the newspaper or watching television: not at all 8. Moving or speaking so slowly that other people could have noticed. Or the opposite - being so fidgety or restless that you have been moving around a lot more than usual: not at all 9. Thoughts that you would be better off or of hurting yourself in some way: not at all Depression Screening Interpretation: Negative Depression Screening Done: Yes Source: Developed by Drs. Manas Reddy, Bessy Hopkins, Kimani Stuart and colleagues, with an educational charly from [employer]. Thrive Questionnaire Date Thrive assessed: 06/07/24 I am a: Patient What is your living situation today?: I have a steady place to live Within the past 12 months, did the food you bought not last and you didn't have the money to get more?: I choose not to answer this question Within the past 12 months, did you worry whether your food would run out before you got money to buy more?: I choose not to answer this question Do you have trouble paying for medicines?: I choose not to answer this question Do you have trouble getting transportation to medical appointments?: I choose not to answer this question Do you have trouble paying your heating and electricity bill?: I choose not to answer this question Do you have trouble taking care of your child, family member or friend?: I choose not to answer this question Do you have trouble with day-to-day activities such as bathing, preparing meals, shopping, managing finances, etc.?: I choose not to answer this question Are you currently unemployed and looking for a job?: No Are you interested in more education?: No Please select the resources that you would like help with: Housing/Fpc Currently or been in a relationship where the following occur: I choose not to answer THRIVE Score: 0 JESSICA-7 AMB Questionnaire JESSICA-7 Date JESSICA - 7 assessed: 06/07/24 Source: Developed by Drs. Manas Reddy, Bessy Hopkins, Kimani Stuart and colleagues, with an educational charly from [employer]. Review of Systems Const All systems reviewed & are unremarkable except as noted in HPI and below Reports no additional complaints Eyes Reports no additional complaints ENT Reports no additional complaints Card Reports no additional complaints Resp Reports no additional complaints GI Reports no additional complaints Physical exam (Primary Care) Vital Signs: Last Vital Signs Pulse 77 06/07/24 12:52 BP 134/80 06/07/24 12:52 Pulse Ox 96 06/07/24 12:52 Oxygen Delivery Method Room Air 06/07/24 12:52 BMI result Body Mass Index 30.2 Tobacco/Smoking Status: Tobacco use Status Tobacco use date assessed 04/01/24 06/07/24 12:56 Patient Tobacco Use Status Never used Tobacco 06/07/24 12:56 e-Cigarette/Vaping Use Never Used 06/07/24 12:56 Depression Screening Interpretation: Negative Thrive Assessment: Date of Thrive Assessment Date Thrive assessed 06/07/24 06/07/24 12:56 Currently or been in a relationship where the following occur: I choose not to answer Const General: no acute distress HENMT Head: Yes normal to inspection Ears: hearing grossly normal bilaterally Face and sinus: Yes normal facial exam Eyes General: appearance normal, both eyes and all related structures Neck Neck: Yes supple Resp Effort & Inspection: normal respiratory effort Auscultation: clear to auscultation bilaterally Cardio Rhythm: regular rhythm Heart sounds: S1 normal heart sound present and S2 normal heart sound present Assessment and Plan Assessment & Plan (1) HTN (hypertension): Comment: f/u with nephrology, hydrochlorothiazide was discontinued because of hypokalemia 03/17 Code(s): I10 - Essential (primary) hypertension Plan: Continue current medications. Patient was advised to take amlodipine and metoprolol at night to avoid drop in blood pressure in the middle of the day. (2) Hyperlipidemia: Code(s): E78.5 - Hyperlipidemia, unspecified Plan: Continue statin (3) Osteoporosis: Comment: DEXA 12/16 T score -2.8 L femoral neck, started Fosamax 01/16 Code(s): M81.0 - Age-related osteoporosis without current pathological fracture Plan: Continue Fosamax, follow-up in 4 months with a fasting labs before Orders: Orders Comprehensive [place]. Panel Fast 4 Months E78.5 - Hyperlipidemia, unspecified, I10 - Essential (primary) hypertension, M81.0 - Age-related osteoporosis without current pathological fracture Complete Blood Count Auto Diff 4 Months I10 - Essential (primary) hypertension Medications: Refilled spironolactone 25 mg PO DAILY 90 tabs 3RF amlodipine 5 mg PO DAILY 90 tabs 3RF Coding Level of Care Code Est Pt Level 4 (97433) Diagnoses HTN (hypertension) I10 Hyperlipidemia E78.5 Osteoporosis M81.0
[2024-06-07 12:52] VITALS: BP 134/80; PULSE 77; O2SAT 96; BMI 30.2
== END 2024-06-07 13:28 | disposition home or self-care (01) ==
PROVIDERS: PCP Internal Medicine; Visit Provider Internal Medicine
DX: I10 Essential (primary) hypertension (principal); E78.5 Hyperlipidemia, unspecified; M81.0 Age-related osteoporosis without current pathological fracture
CPT/HCPCS: 99214

== ENCOUNTER 2024-10-07 10:29 | Outpatient (REF) | payer MEDICARE, SELFPAY ==
[2024-10-07 13:42] LABS: Basophils Absolute Auto 0.1 X10*3/uL (0.0-0.2); Basophils Percent Auto 0.7 % (0-2); Eosinophils Absolute Auto 0.2 X10*3/uL (0.0-0.4); Eosinophils Percent Auto 2.9 % (0-4); Hematocrit 44.2 % (37.0-47.0); Imm Gran Abs Auto 0.02 X10*3/uL (0.00-0.03); Imm Gran Pct Auto 0.3 % (0.0-0.4); Lymphocytes Absolute Auto 3.1 X10*3/uL (1.2-4.9); Lymphocytes Percent Auto 41.2 % (20-40); MANUAL DIFF FLAG SCAN; Mean Corpuscular HGB Conc 33.9 g/dl (31.0-35.0); Mean Corpuscular Hemoglobin 31.3 pg (27.0-33.0); Mean Corpuscular Volume 92.1 fL (80.0-98.0); Monocytes Absolute Auto 0.8 X10*3/uL (0.1-1.2); Monocytes Percent Auto 9.8 % (2-11); Neutrophils Absolute Auto 3.4 x10*3/uL (2.0-8.3); Neutrophils Percent Auto 45.1 % (45-73); PLT CLUMP 1; Red Cell Distribution Width 12.6 % (11.0-16.0); SCAN SMEAR FLAG 1
[2024-10-07 14:07] LABS: Albumin Level 4.2 g/dL (3.5-5.0); Alkaline Phosphatase 98 U/L (39-117); Anion Gap 14 (12-20); Aspartate Amino Transferase 45 U/L (5-31); Bilirubin Total 0.9 mg/dL (0.0-1.0); Blood Urea Nitrogen 11 mg/dL (9-16); Calcium 10.3 mg/dL (8.4-10.2); Carbon Dioxide 24 mmol/L (22-29); Chloride 107 mmol/L (96-108); Estimated Glomerular Filt Rate 56; Glucose Fasting 93 mg/dL (60-99); Potassium 3.9 mmol/L (3.3-5.1); Sodium 141 mmol/L (135-145); Total Protein 7.3 g/dL (6.5-8.0)
[2024-10-07 14:23] LABS: Mean Platelet Volume 11.5 fL (9.4-12.3); Platelet Count 179 X10*3/uL (160-400); White Blood Count 7.6 X10*3/uL (4.8-10.8)
[2024-10-07 14:24] LABS: SLIDE REVIEW VERIFIED
[2024-10-07 17:36] LABS: Alanine Aminotransferase 54 U/L (0-31)
== END 2024-10-07 10:30 | disposition home or self-care (01) ==
LOC: HO.HMGCLDS 10:29
PROVIDERS: PCP Internal Medicine; Visit Provider Internal Medicine
DX: I10 Essential (primary) hypertension (principal); E78.5 Hyperlipidemia, unspecified; M81.0 Age-related osteoporosis without current pathological fracture
CPT/HCPCS: 36415; 80053; 85025

== ENCOUNTER 2024-10-11 13:44 | Outpatient (AMB) | payer MEDICARE, SELFPAY ==
[2024-10-11 13:53] VITALS: BP 122/76; PULSE 77; O2SAT 96; BMI 30.7
--- NOTE | 2024-10-11 13:53 | MHC.PC.OV ---
Vital Signs 10/11/24 13:53 Height 5 ft 2 in Weight 168 lb BMI 30.7 BP 122/76 Blood Pressure Location Lt brachial Position Sitting Pulse 77 Pulse Source Pulse Oximeter Pulse Oximetry (%) 96 Oxygen Delivery Method Room Air Intake Visit Reasons: 4 month follow up Intake Note: Pt is here today for 4 months follow up visit. Allergies No Known Allergies Allergy (Verified 10/11/24 13:53) Tobacco use date assessed: 10/11/24 Fall risk assessment: No Falls in past year Last assessed Fall Risk: 10/11/24 Dental Screening Dental Screen Date: 04/01/24 HPI 4 month follow up HPI Details Pt presents for f/u HTN, hyperlipid, osteoporosis, stable on meds. [facility] Medical History (Updated 10/11/24 @ 14:22 by Radha Gao MD) Mammogram normal Normal colonoscopy Annual physical exam Normal Pap smear Anxiety and depression Hyperlipidemia Migraines HTN (hypertension) Surgical History H/O colonoscopy No pertinent past surgical history Family History Father Type 2 diabetes mellitus HTN (hypertension) Stroke Mother No problems noted. Brother HTN (hypertension) Alcoholism Brother History of heart attack Brother Cancer Maternal Grandfather Alcoholism Son No problems noted. Brother No problems noted. Social History Housing: House Patient Tobacco Use Status: Never used Tobacco e-Cigarette/Vaping Use: Never Used service: No Current occupational status: employed Cognitive needs: No Hearing needs: No Vision needs: Yes Questionnaire Thrive Questionnaire Date Thrive assessed: 06/07/24 I am a: Patient What is your living situation today?: I have a steady place to live Within the past 12 months, did the food you bought not last and you didn't have the money to get more?: I choose not to answer this question Within the past 12 months, did you worry whether your food would run out before you got money to buy more?: I choose not to answer this question Do you have trouble paying for medicines?: I choose not to answer this question Do you have trouble getting transportation to medical appointments?: I choose not to answer this question Do you have trouble paying your heating and electricity bill?: I choose not to answer this question Do you have trouble taking care of your child, family member or friend?: I choose not to answer this question Do you have trouble with day-to-day activities such as bathing, preparing meals, shopping, managing finances, etc.?: I choose not to answer this question Are you currently unemployed and looking for a job?: No Are you interested in more education?: No Please select the resources that you would like help with: None Currently or been in a relationship where the following occur: I choose not to answer THRIVE Score: 0 JESSICA-7 AMB Questionnaire JESSICA-7 Date JESSICA - 7 assessed: 06/07/24 Source: Developed by Drs. Manas Reddy, Bessy Hopkins, Kimani Stuart and colleagues, with an educational charly from [employer]. Review of Systems Const All systems reviewed & are unremarkable except as noted in HPI and below Eyes Reports no additional complaints ENT Reports no additional complaints Card Reports no additional complaints Resp Reports no additional complaints GI Reports no additional complaints Reports no additional complaints Physical exam (Primary Care) Vital Signs: Last Vital Signs Pulse 77 10/11/24 13:53 BP 122/76 10/11/24 13:53 Pulse Ox 96 10/11/24 13:53 Oxygen Delivery Method Room Air 10/11/24 13:53 BMI result Body Mass Index 30.7 Tobacco/Smoking Status: Tobacco use Status Tobacco use date assessed 10/11/24 10/11/24 13:58 Patient Tobacco Use Status Never used Tobacco 10/11/24 13:53 e-Cigarette/Vaping Use Never Used 10/11/24 13:53 Thrive Assessment: Date of Thrive Assessment Date Thrive assessed 06/07/24 10/11/24 13:53 Currently or been in a relationship where the following occur: I choose not to answer Const General: no acute distress HENMT Head: Yes normal to inspection Throat: Yes posterior oropharynx normal Neck Neck: Yes no lymphadenopathy Resp Effort & Inspection: normal respiratory effort Auscultation: clear to auscultation bilaterally Cardio Rhythm: regular rhythm Heart sounds: S1 normal heart sound present and S2 normal heart sound present GI Inspection: Yes normal to inspection Palpation (GI): Soft to palpation and No hepatosplenomegaly present Percussion: Yes normal to percussion Auscultation: normal bowel sounds Coding Level of Care Code Est Pt Level 4 (86834) Diagnoses HTN (hypertension) I10 Hyperlipidemia E78.5 Annual physical exam Z00. Osteoporosis M81.0 Elevated LFTs R79.89 Overweight E66.3 Assessment & Plan Assessment & Plan (1) HTN (hypertension): Comment: f/u with nephrology, hydrochlorothiazide was discontinued because of hypokalemia 03/17 Code(s): I10 - Essential (primary) hypertension Category: Medical Plan: Continue current medications (2) Hyperlipidemia: Code(s): E78.5 - Hyperlipidemia, unspecified Category: Medical Plan: Continue atorvastatin (3) Annual physical exam: Code(s): Z00.00 - Encounter for general adult medical examination without abnormal findings Category: Medical Plan: Return for physical in 6 months (4) Osteoporosis: Comment: DEXA 12/16 T score -2.8 L femoral neck, started Fosamax 01/16 Code(s): M81.0 - Age-related osteoporosis without current pathological fracture Category: Medical Plan: Continue Fosamax vitamin-D regular exercise recheck DEXA next year (5) Elevated LFTs: Comment: Abdominal ultrasound fatty liver 2017 Code(s): R79.89 - Other specified abnormal findings of blood chemistry Category: Medical Plan: Low simple carbohydrate diet increase physical activity weight loss discussed with the patient (6) Overweight: Code(s): E66.3 - Overweight Category: Medical Plan: Weight loss discussed with the patient Orders: Orders Complete Blood Count Auto Diff 6 Months E78.5 - Hyperlipidemia, unspecified, I10 - Essential (primary) hypertension, Z00.00 - Encounter for general adult medical examination without abnormal findings Lipid Panel 6 Months E78.5 - Hyperlipidemia, unspecified, I10 - Essential (primary) hypertension, Z00.00 - Encounter for general adult medical examination without abnormal findings TSH reflex Free T4 6 Months E78.5 - Hyperlipidemia, unspecified, I10 - Essential (primary) hypertension, Z00.00 - Encounter for general adult medical examination without abnormal findings Comprehensive [place]. Panel Fast 6 Months E78.5 - Hyperlipidemia, unspecified, I10 - Essential (primary) hypertension, Z00.00 - Encounter for general adult medical examination without abnormal findings
== END 2024-10-11 14:23 | disposition home or self-care (01) ==
PROVIDERS: PCP Internal Medicine; Visit Provider Internal Medicine
DX: I10 Essential (primary) hypertension (principal); E78.5 Hyperlipidemia, unspecified; Z00.00 Encounter for general adult medical examination without abnormal findings; M81.0 Age-related osteoporosis without current pathological fracture; R79.89 Other specified abnormal findings of blood chemistry; E66.3 Overweight

== ENCOUNTER → 2024-10-11 13:44 | Outpatient (BNVA) | payer MEDICARE, SELFPAY | PROVIDERS: PCP Internal Medicine; Visit Provider Internal Medicine | DX: I10 Essential (primary) hypertension (principal); E78.5 Hyperlipidemia, unspecified; M81.0 Age-related osteoporosis without current pathological fracture; R79.89 Other specified abnormal findings of blood chemistry; E66.3 Overweight | CPT/HCPCS: 99212 ==

== ENCOUNTER 2024-10-25 11:25 | Outpatient (REF) | payer MEDICARE, SELFPAY ==
--- NOTE | ~2024-10-25 | MM_ITS ---
EXAMINATION: MM SCREENING DIGITAL BREAST TOMOSYNTHESIS, BILATERAL CLINICAL INFORMATION: Screening. Asymptomatic. COMPARISON: Mammography: Comparison is made with available priors TECHNIQUE: Digital breast mammography with tomosynthesis is performed in both the craniocaudal and mediolateral oblique views along with computer-aided detection (CAD). FINDINGS: The breasts are heterogeneously dense, which may obscure small masses (ACR BI-RADS breast composition Category c). There are no significant masses, abnormal calcifications, or other abnormalities. MM/MM tomosynthesis screening BI IMPRESSION: No mammographic evidence of malignancy. ASSESSMENT: BI-RADS BI-RADS 1 - Negative RECOMMENDATION: Routine annual mammography screening. 1 year F/U This examination should not preclude the clinical evaluation of a suspicious palpable abnormality. This patient's information was entered into a reminder system with a target due date for their next mammogram. Electronically signed by: Tonie Jennings DO 10/29/2024 02:01 PM ARIC
== END 2024-10-25 11:26 | disposition home or self-care (01) ==
LOC: HO.MAMMO 11:25
PROVIDERS: PCP Internal Medicine; Visit Provider Internal Medicine
DX: Z12.31 Encounter for screening mammogram for malignant neoplasm of breast (principal)
CPT/HCPCS: 77063; 77067

== ENCOUNTER → 2024-10-25 11:30 | Outpatient (BNV) | payer MEDICARE, SELFPAY | PROVIDERS: PCP Internal Medicine; Visit Provider Internal Medicine | DX: Z12.31 Encounter for screening mammogram for malignant neoplasm of breast (principal) | CPT/HCPCS: 77063; 77067 ==

== ENCOUNTER 2025-02-01 10:21 | Outpatient (REF) | payer MEDICARE, SELFPAY ==
--- OUTSIDE RECORDS SUMMARY | 2025-02-01 12:21 | XMS_ITS | Encounter Summary ---
Author Organization [facility] Address [address] [place] [address] Phone Care Team Providers Care Magneto Specialist Name Role Phone Radha Gao MD Primary Care Provider [phone] Encounter Details Date Type Department Care Team (Late st Contact Info) Description 02/11/2023 Documentation Only [facility] [address] [place] [address] Rodríguez Richardson MD [address] [place] [address] [place] [address] Social History Tobacco Use Types Packs/Day Years Used Date Smoking Tobacco: Never Alcohol Use Standard Drinks/Week Comments No 0 (1 standard drink = 0.6 oz pur e alcohol) Comments Unknown Sex and Gender Information Value Date Recorded Sex Assigned at Not on file Legal Sex Female 4:36 PM EST Gender Identity Female 02/08/2024 10:48 AM EDT Sexual Orientation Not on file documented as of this encounter Plan of Treatment Upcoming Encounters Date Type Department Care Team (Late Contact Info) Description 02/08/2025 1:30 PM EDT Office Visit [facility] [address] [place] [address] Rodríguez Richardson MD [address] [place] [address] [place] [address] documented as of this encounter Visit Diagnoses Not on filedocumented in this encounter Care Teams Magneto Specialist Relationship Specialty Start Date End Date Radha Gao MD [address] [place] [address] PCP - General Internal Medicine 02/04/22 documented as of this encounter
--- OUTSIDE RECORDS SUMMARY | 2025-02-01 12:21 | XMS_ITS | Encounter Summary ---
Author Organization [facility] Address [address] [place] [address] Phone Care Team Providers Care Edge Glue Machine Tender Name Role Phone Radha Gao MD Primary Care Provider Encounter Details Date Type Department Care Team (Late Contact Info) Description 02/09/2024 Documentation Only [facility] [address] [place] [address] Adia Brown [address] [place] [address] Social History Tobacco Use Types Packs/Day Years [...] Visit [facility] [address] [place] [address] Rodríguez Richardson MD [address] [facility] [place] [address] documented as of this encounter Visit Diagnoses Not on filedocumented in this encounter Care Teams Edge Glue Machine Tender Relationship Specialty Start Date End Date Radha Gao MD [address] [place] [address] PCP - General Internal Medicine 02/04/22 documented as of this encounter
--- OUTSIDE RECORDS SUMMARY | 2025-02-01 12:21 | XMS_ITS | Encounter Summary ---
Author Organization [facility] Address [address] [place] [address] Phone Care Team Providers Care Rib Cutter Name Role Phone Radha Gao MD Primary Care Provider [phone] Encounter Details Date Type Department Care Team (Late st Contact Info) Description 02/07/2023 Documentation Only [facility] [address] [place] [address] Rodríguez Richardson MD [address] [place] [address] [place] [address] Social History Tobacco Use Types [...] Visit [facility] [address] [place] [address] Rodríguez Richardson MD [address] [place] [address] [place] [address] documented as of this encounter Visit Diagnoses Not on filedocumented in this encounter Care Teams Rib Cutter Relationship Specialty Start Date End Date Radha Gao MD [address] [place] [address] PCP - General Internal Medicine 02/04/22 documented as of this encounter
--- OUTSIDE RECORDS SUMMARY | 2025-02-01 12:22 | XMS_ITS | Encounter Summary ---
Author Organization [facility] Address [address] [place] [address] Phone Care Team Providers Care Conservation Enforcement Officer Name Role Phone Radha Gao MD Primary Care Provider [phone] Encounter Details Date Type Department Care Team (Late Contact Info) Description 04/01/2024 Documentation Only [facility] [address] [place] [address] Adia Brown [address] [place] [address] Social History Tobacco Use Types [...] Visit [facility] [address] [place] [address] Rodríguez Richardson MD [address] [place] [address] documented as of this encounter Visit Diagnoses Not on filedocumented in this encounter Care Teams Conservation Enforcement Officer Relationship Specialty Start Date End Date Radha Gao MD [address] [place] [address] PCP - General Internal Medicine 02/04/22 documented as of this encounter
--- OUTSIDE RECORDS SUMMARY | 2025-02-01 12:22 | XMS_ITS | Encounter Summary ---
Author Organization [facility] Address [address] [place] [address] Phone Care Team Providers Care Waste Water Worker Name Role Phone Radha Gao MD Primary Care Provider [phone] Encounter Details Date Type Department Care Team (Late st Contact Info) Description 03/12/2024 Office Communication [facility] [place] [address] [place] [phone] Rodríguez Richardson MD [address] [place] [address] [place] [address] Social History Tobacco Use Types [...] Office Visit [facility] [address] [place] [address] Rodríguez Richardson MD [address] [place] [address] [place] [address] documented as of this encounter Visit Diagnoses Not on filedocumented in this encounter Care Teams Waste Water Worker Relationship Specialty Start Date End Date Radha Gao MD [place] [address] PCP - General Internal Medicine 02/04/22 documented as of this encounter
--- OUTSIDE RECORDS SUMMARY | 2025-02-01 12:22 | XMS_ITS | Encounter Summary ---
Author Organization [facility] Address [address] [place] [address] Phone Care Team Providers Care Belt Loop Maker Name Role Phone Radha Gao MD Primary Care Provider [phone] Encounter Details Date Type Department Care Team (Late st Contact Info) Description 02/08/2022 Documentation Only [facility] [address] [place] [address] Rodríguez Richardson MD [address] [place] [address] [place] [address] Social History Tobacco Use Types [...] Visit [facility] [address] [address] Rodríguez Richardson MD [address] [place] [address] [place] [address] documented as of this encounter Visit Diagnoses Not on filedocumented in this encounter Care Teams Belt Loop Maker Relationship Specialty Start Date End Date Radha Gao MD [address] [place] [address] PCP - General Internal Medicine 02/04/22 documented as of this encounter
--- OUTSIDE RECORDS SUMMARY | 2025-02-01 12:22 | XMS_ITS | Encounter Summary ---
Author Organization [facility] Address [address] [place] [address] Phone Care Team Providers Care Windmill Technician Name Role Phone Radha Gao MD Primary Care Provider [phone] Encounter Details Date Type Department Care Team (Late Contact Info) Description 03/12/2024 Documentation Only [facility] [address] [place] [address] Adia Brown [address] [place] [address] Social History Tobacco Use Types [...] Visit [facility] [address] [place] [address] Rodríguez Richardson MD [address] [place] [address] documented as of this encounter Visit Diagnoses Not on filedocumented in this encounter Care Teams Windmill Technician Relationship Specialty Start Date End Date Radha Gao MD [address] [place] [address] PCP - General Internal Medicine 02/04/22 documented as of this encounter
--- OUTSIDE RECORDS SUMMARY | 2025-02-01 12:22 | XMS_ITS | Encounter Summary ---
Author Organization [facility] Address [address] [place] [address] Phone Care Team Providers Care Welt Trimming Machine Operator Name Role Phone Radha Gao MD Primary Care Provider [phone] Encounter Details Date Type Department Care Team (Late Contact Info) Description 04/05/2024 Documentation Only [facility] [address] [place] [address] Adia Brown [address] [place] [address] Social History Tobacco Use Types [...] Visit [facility] [address] [place] [address] Rodríguez Richardson MD [address] [place] [address] documented as of this encounter Visit Diagnoses Not on filedocumented in this encounter Care Teams Welt Trimming Machine Operator Relationship Specialty Start Date End Date Radha Gao MD [address] [place] [address] PCP - General Internal Medicine 02/04/22 documented as of this encounter
--- OUTSIDE RECORDS SUMMARY | 2025-02-01 12:22 | XMS_ITS | Encounter Summary ---
Author Organization [facility] Address [address] [place] [address] Phone Care Team Providers Care Window Cleaner Name Role Phone Radha Gao MD Primary Care Provider [phone] Encounter Details Date Type Department Care Team (Late st Contact Info) Description 02/08/2022 Documentation Only [facility] [address] [place] [address] Rodríguez Richardson MD [address] [place] [address] [place] [address] Social History Tobacco Use Types [...] Visit [facility] [address] [place] [address] Rodríguez Richardson MD [address] [place] [address] [place] [address] documented as of this encounter Visit Diagnoses Not on filedocumented in this encounter Care Teams Window Cleaner Relationship Specialty Start Date End Date Radha Gao MD [address] [place] [address] PCP - General Internal Medicine 02/04/22 documented as of this encounter
--- OUTSIDE RECORDS SUMMARY | 2025-02-01 12:22 | XMS_ITS | Encounter Summary ---
Author Organization [facility] Address [address] [place] [address] Phone Care Team Providers Care Riverboat Master Name Role Phone Radha Gao MD Primary Care Provider [phone] Encounter Details Date Type Department Care Team (Late st Contact Info) Description 02/01/2025 Documentation Only [facility] [address] [place] [address] Siena aGrcia [address] [place] [address] Social History Tobacco Use Types Packs/Day [...] Visit [facility] [address] [place] [address] Rodríguez Richardson MD [address] [place] [address] [place] [address] documented as of this encounter Visit Diagnoses Not on filedocumented in this encounter Care Teams Riverboat Master Relationship Specialty Start Date End Date Radha Gao MD [address] [place] [address] PCP - General Internal Medicine 02/04/22 documented as of this encounter
--- OUTSIDE RECORDS SUMMARY | 2025-02-01 12:22 | XMS_ITS | Clinical Summary ---
Author Organization [facility] Address [address] [place] [address] Phone Care Team Providers Care Assembler Wire Mesh Gate Name Role Phone Radha Gao MD Primary Care Provider [phone] Allergies No known active allergies Medications atorvastatin (LIPITOR) 80 MG tablet Take 80 mg by mouth daily 01/15/2020 Active hydroCHLOROthiaz ivon (HYDRODIURIL) 25 MG tablet Take 25 mg by mouth daily 01/15/2020 Active metoprolol succinate XL (TOPROL-XL) 200 MG 24 hr tablet Take 200 mg by mouth daily 01/15/2020 Active losartan (COZAAR) 100 MG tablet Take 1 tablet (100 mg total) by mouth 1 (one) time each day 30 tablet 11 10/23/2020 Active amLODIPine (NORVASC) 5 MG tablet Take 1 tablet (5 mg total) by mouth 1 (one) time each day 90 tablet 3 06/30/2023 Active Active Problems Problem Noted Date Diagnosed Date Hypokalemia 02/11/2022 Hypertensive disorder 01/31/2020 Encounters Date Type Department Care Team Description 02/01/2025 Documentation Only [facility] [place], [address] [place] [address] Siena Garcia from Last 3 Months Family History Medical History Relation Comments Diabetes Father Hypertension Father Diabetes Sibling 1 brother Hypertension Sibling 2 brother x2 Relation Status Comments Father Sibling 1 Sibling 2 Social History Tobacco Use Types Packs/Day Years Used Date Smoking Tobacco: Never Alcohol Use Standard Drinks/Week Comments No 0 (1 standard drink = 0.6 oz pur e alcohol) Comments Unknown Sex and Gender Information Value Date Recorded Sex Assigned at Not on file Legal Sex Female 4:36 PM EST Gender Identity Female 02/08/2024 10:48 AM EDT Sexual Orientation Not on file Last Filed Vital Signs Vital Sign Reading Time Taken Comments Blood Pressure 128/80 01/31/2020 3:54 PM EDT Pulse - - Temperature - - Respiratory Rate - - Oxygen Saturation - - Inhaled Oxygen Concentration - - Weight 71.2 kg (157 lb) 01/31/2020 3:54 PM EDT Height 157.5 cm (5' 2 ) 10/05/2018 12:00 PM EST Body Mass Index 28.72 10/05/2018 12:00 PM EST Plan of Treatment Upcoming Encounters Date Type Department Care Team (Late st Contact Info) Description 02/08/2025 1:30 PM EDT Office Visit [facility] [address] [place] [place] [address] Rodríguez Richardson MD [address] [place] [id number] Health Maintenance Due Date Last Done Comments Breast Cancer Screening 1954 Colorectal Cancer Screening: Annual FOBT 2003 Colorectal Cancer Screening: Colonoscopy 2003 Colorectal Cancer Screening: Sigmoidoscopy 2003 Pneumococcal Vaccine: 65+ Ye ars (1 of 1 - PCV) 2019 Influenza Vaccine (#1) 2024 Hepatitis B Vaccine Aged Out No longe r eligible based on patient's age to complete this topic Insurance [facility] MEDIC[facility] Care Teams Assembler Wire Mesh Gate Relationship Specialty Start Date End Date Radha Gao MD [address] [place] [address] PCP - General Internal Medicine 02/04/22
--- OUTSIDE RECORDS SUMMARY | 2025-02-01 12:22 | XMS_ITS | Encounter Summary ---
Author Organization [facility] Address [address] [place] [address] Phone Care Team Providers Care Bi Data Architect Name Role Phone Radha Gao MD Primary Care Provider [phone] Encounter Details Date Type Department Care Team (Late st Contact Info) Description 02/08/2022 Documentation Only [facility] [address] [place] [address] Rodríguez Richardson MD [address] [place] [address] [place] [address] Social History Tobacco Use Types [...] Visit [facility] [address] [place] [address] Rodríguez Richardson MD [address] [place] [address] [place] [address] documented as of this encounter Visit Diagnoses Not on filedocumented in this encounter Care Teams Bi Data Architect Relationship Specialty Start Date End Date Radha Gao MD [address] [place] [address] PCP - General Internal Medicine 02/04/22 documented as of this encounter
[2025-02-01 13:14] LABS: Appearance Urine Clear; Color Urine Yellow; Glucose Urine UA Negative (Negative); Leukocyte Esterase Urine Negative (Negative); Nitrite Urine Negative (Negative); Specific Gravity - Urine <= 1.005 (1.005-1.025); Urine Blood Negative (Negative); Urine Ketones Negative (Negative); Urine Protein Negative (Neg-Trace)
[2025-02-01 13:42] LABS: MANUAL DIFF FLAG NO
[2025-02-01 13:52] LABS: Basophils Absolute Auto 0.1 X10*3/uL (0.0-0.2); Basophils Percent Auto 0.7 % (0-2); Eosinophils Absolute Auto 0.2 X10*3/uL (0.0-0.4); Eosinophils Percent Auto 2.4 % (0-4); Hematocrit 42.7 % (37.0-47.0); Hemoglobin 14.5 g/dl (12.0-16.0); Imm Gran Abs Auto 0.02 X10*3/uL (0.00-0.03); Imm Gran Pct Auto 0.2 % (0.0-0.4); Lymphocytes Absolute Auto 2.9 X10*3/uL (1.2-4.9); Lymphocytes Percent Auto 35.3 % (20-40); Mean Corpuscular Hemoglobin 30.7 pg (27.0-33.0); Mean Corpuscular Volume 90.3 fL (80.0-98.0); Mean Platelet Volume 10.3 fL (9.4-12.3); Monocytes Absolute Auto 0.8 X10*3/uL (0.1-1.2); Monocytes Percent Auto 9.2 % (2-11); Neutrophils Absolute Auto 4.3 x10*3/uL (2.0-8.3); Neutrophils Percent Auto 52.2 % (45-73); Platelet Count 241 X10*3/uL (160-400); Red Blood Count 4.73 X10*6/uL (4.20-5.50); Red Cell Distribution Width 12.4 % (11.0-16.0); White Blood Count 8.3 X10*3/uL (4.8-10.8)
[2025-02-01 14:06] LABS: Anion Gap 14 (12-20); Blood Urea Nitrogen 20 mg/dL (9-16); Calcium 10.1 mg/dL (8.4-10.2); Carbon Dioxide 22 mmol/L (22-29); Chloride 109 mmol/L (96-108); Estimated Glomerular Filt Rate 54; Iron 112 mcg/dL (30-160); Percent Iron Saturation 36 % (15-50); Potassium 4.2 mmol/L (3.3-5.1); Sodium 141 mmol/L (135-145); Total Iron Binding Capacity 307 mcg/dL (228-428); Unsaturated Iron Binding 195 ug/dL; Uric Acid 4.2 mg/dL (2.4-5.7)
[2025-02-01 14:24] LABS: Ferritin 49 ng/mL (10-250); Vitamin D 25-OH Total 70.1 ng/mL (>30)
[2025-02-01 14:28] LABS: Creatinine Urine 42.33 mg/dL; Parathyroid Hormone Intact 57.6 pg/mL (8.7-77.1); Total Protein Urine Random < 7 mg/dL (<12)
[2025-02-07 23:44] LABS: Renin 2.98 ng/mL/h (0.25-5.82)
== END 2025-02-01 10:22 | disposition home or self-care (01) ==
LOC: HO.HMGCLDS 10:21
PROVIDERS: PCP Internal Medicine; Visit Provider Internal Medicine Nephrology
DX: Z00.00 Encounter for general adult medical examination without abnormal findings (principal); E87.6 Hypokalemia; I10 Essential (primary) hypertension
CPT/HCPCS: 36415; 80051; 81003; 82088; 82306; 82310; 82565; 82570; 82728; 83540; 83970; 84156; 84244; 84520; 84550; 85025

== ENCOUNTER 2025-04-13 10:21 | Outpatient (REF) | payer MEDICARE, SELFPAY ==
--- OUTSIDE RECORDS SUMMARY | 2025-04-13 11:51 | XMS_ITS | Encounter Summary ---
Author Organization [facility] Address [address] [place] [address] Phone Care Team Providers Care Emt Driver Name Role Phone Radha Gao MD Primary Care Provider [phone] Encounter Details Date Type Department Care Team (Late st Contact Info) Description 02/08/2022 Documentation Only [facility] [address] [place] [address] Rodríguez Richardson MD [address] [place] [address] [place] [address] Social History Tobacco Use Types [...] Department Care Team (Late Contact Info) Description 02/07/2026 1:30 PM EDT Office Visit [facility] [address] [facility] [place] [address] Rodríguez Richardson MD [address] [place] [address] [place] [address] documented as of this encounter Visit Diagnoses Not on filedocumented in this encounter Care Teams Emt Driver Relationship Specialty Start Date End Date Radha Gao MD [address] [place] [address] PCP - General Internal Medicine 02/04/22 documented as of this encounter
--- OUTSIDE RECORDS SUMMARY | 2025-04-13 11:51 | XMS_ITS | Encounter Summary ---
Author Organization [facility] Address [address] [place] [address] Phone Care Team Providers Care V Belt Builder Name Role Phone Radha Gao MD Primary Care Provider [phone] Encounter Details Date Type Department Care Team (Late st Contact Info) Description 03/12/2024 Office Communication [facility] [address] [place] [id number] Rodríguez Richardson MD [address] [place] [address] [place] [address] Social History Tobacco Use Types [...] Office Visit [facility] [address] [place] [address] Rodríguez Richardson MD [address] [place] [address] [place] [address] documented as of this encounter Visit Diagnoses Not on filedocumented in this encounter Care Teams V Belt Builder Relationship Specialty Start Date End Date Radha Goa MD [facility] [place] [address] PCP - General Internal Medicine 02/04/22 documented as of this encounter
--- OUTSIDE RECORDS SUMMARY | 2025-04-13 11:51 | XMS_ITS | Encounter Summary ---
Author Organization [facility] Address [address] [place] [address] Phone Care Team Providers Care Lay Out Helper Name Role Phone Radha Gao MD Primary Care Provider [phone] Encounter Details Date Type Department Care Team (Late st Contact Info) Description 02/11/2023 Documentation Only [facility] [address] [place] [address] Rodríguez Richardson MD [address] [place] [address] [place] [address] Social History Tobacco Use Types [...] [facility] [address] [facility] [place] [address] Rodríguez Richardson MD [address] [place] [address] [place] [address] documented as of this encounter Visit Diagnoses Not on filedocumented in this encounter Care Teams Lay Out Helper Relationship Specialty Start Date End Date Radha Gao MD [address] [place] [address] PCP - General Internal Medicine 02/04/22 documented as of this encounter
--- OUTSIDE RECORDS SUMMARY | 2025-04-13 11:51 | XMS_ITS | Encounter Summary ---
Author Organization [facility] Address [address] [place] [address] Phone Care Team Providers Care Sewer Head Name Role Phone Radha Gao MD Primary Care Provider [phone] Encounter Details Date Type Department Care Team (Late st Contact Info) Description 02/08/2025 Documentation Only [facility] [address] [place] [address] Siena Garcia [address] [place] [address] Social History Tobacco Use Types Packs/Day [...] Visit [facility] [address] [place] [address] Rodríguez Richardson MD [address] [place] [address] [place] [address] documented as of this encounter Visit Diagnoses Not on filedocumented in this encounter Care Teams Sewer Head Relationship Specialty Start Date End Date Radha Gao MD [address] [place] [address] PCP - General Internal Medicine 02/04/22 documented as of this encounter
--- OUTSIDE RECORDS SUMMARY | 2025-04-13 11:51 | XMS_ITS | Encounter Summary ---
Author Organization [facility] Address [address] [place] [address] Phone Care Team Providers Care Hostler Helper Name Role Phone Radha Gao MD Primary Care Provider [phone] Encounter Details Date Type Department Care Team (Late st Contact Info) Description 02/07/2025 Documentation Only [facility] [address] [place] [address] Siena Garcia [address] [place] [address] Social History Tobacco Use Types Packs/Day [...] Visit [facility] [address] [place] [address] Rodríguez Richardson MD [address] [place] [address] [place] [address] documented as of this encounter Visit Diagnoses Not on filedocumented in this encounter Care Teams Hostler Helper Relationship Specialty Start Date End Date Radha Gao MD [address] [place] [address] PCP - General Internal Medicine 02/04/22 documented as of this encounter
--- OUTSIDE RECORDS SUMMARY | 2025-04-13 11:51 | XMS_ITS | Encounter Summary ---
Author Organization [facility] Address [address] [place] [address] Phone Care Team Providers Care Production Honing Machine Operator Name Role Phone Radha Gao MD Primary Care Provider [phone] Encounter Details Date Type Department Care Team (Late Contact Info) Description 02/09/2024 Documentation Only [facility] [address] [place] [address] Adia Brown [address] [place] [address] Social History Tobacco Use Types [...] [facility] [address] [place] [address] Rodríguez Richardson MD [address] [facility] [place] [address] documented as of this encounter Visit Diagnoses Not on filedocumented in this encounter Care Teams Production Honing Machine Operator Relationship Specialty Start Date End Date Radha Gao MD [address] [place] [address] PCP - General Internal Medicine 02/04/22 documented as of this encounter
--- OUTSIDE RECORDS SUMMARY | 2025-04-13 11:51 | XMS_ITS | Encounter Summary ---
Author Organization [facility] Address [address] [place] [address] Phone Care Team Providers Care Beader Tender Name Role Phone Radha Gao MD Primary Care Provider [phone] Encounter Details Date Type Department Care Team (Late Contact Info) Description 03/12/2024 Documentation Only [facility] [address] [place] [address] Adia Brown [address] [place] [address] Social History Tobacco Use Types [...] Visit [facility] [address] [place] [address] Rodríguez Richardson MD [address] [facility] [place] [address] documented as of this encounter Visit Diagnoses Not on filedocumented in this encounter Care Teams Beader Tender Relationship Specialty Start Date End Date Radha Gao MD [address] [place] [address] PCP - General Internal Medicine 02/04/22 documented as of this encounter
--- OUTSIDE RECORDS SUMMARY | 2025-04-13 11:51 | XMS_ITS | Encounter Summary ---
Author Organization [facility] Address [address] [place] [address] Phone Care Team Providers Care Medicare Interviewer Name Role Phone Radha Gao MD Primary Care Provider [phone] Encounter Details Date Type Department Care Team (Late st Contact Info) Description 02/01/2025 Documentation Only [facility] [address] [place] [address] Siena Garcia [address] [place] [address] Social History Tobacco Use Types Packs/Day [...] Visit [facility] [address] [facility] [place] [address] Rodríguez Richardson MD [address] [place] [address] [place] [address] documented as of this encounter Visit Diagnoses Not on filedocumented in this encounter Care Teams Medicare Interviewer Relationship Specialty Start Date End Date Radha Gao MD [address] [place] [address] PCP - General Internal Medicine 02/04/22 documented as of this encounter
--- OUTSIDE RECORDS SUMMARY | 2025-04-13 11:51 | XMS_ITS | Encounter Summary ---
Author Organization [facility] Address [address] [place] [address] Phone Care Team Providers Care Field Administrative Assistant Name Role Phone Radha Gao MD Primary Care Provider [phone] Encounter Details Date Type Department Care Team (Late Contact Info) Description 04/01/2024 Documentation Only [facility] [address] [place] [address] Adia Brown [address] [place] [address] Social History Tobacco Use Types [...] [facility] [address] [place] [address] Rodríguez Richardson MD [address] [facility] [place] [address] documented as of this encounter Visit Diagnoses Not on filedocumented in this encounter Care Teams Field Administrative Assistant Relationship Specialty Start Date End Date Radha Gao MD [address] [place] [address] PCP - General Internal Medicine 02/04/22 documented as of this encounter
--- OUTSIDE RECORDS SUMMARY | 2025-04-13 11:51 | XMS_ITS | Encounter Summary ---
Author Organization [facility] Address [address] [place] [address] Phone Care Team Providers Care Vinegar Maker Name Role Phone Radha Gao MD Primary Care Provider [phone] Encounter Details Date Type Department Care Team (Late st Contact Info) Description 02/08/2022 Documentation Only [facility] [address] [place] [address] Rodríguez Richardson MD [address] [place] [address] [place] [address] Social History Tobacco Use Types [...] Visit [facility] [address] [facility] [place] [address] Rodríguez Richardson MD [address] [place] [address] [place] [address] documented as of this encounter Visit Diagnoses Not on filedocumented in this encounter Care Teams Vinegar Maker Relationship Specialty Start Date End Date Radha Gao MD [address] [place] [address] PCP - General Internal Medicine 02/04/22 documented as of this encounter
--- OUTSIDE RECORDS SUMMARY | 2025-04-13 11:51 | XMS_ITS | Encounter Summary ---
Author Organization [facility] Address [address] [place] [address] Phone Care Team Providers Care Table Assembler Name Role Phone Radha Gao MD Primary Care Provider [phone] Encounter Details Date Type Department Care Team (Late st Contact Info) Description 02/07/2023 Documentation Only [facility] [address] [place] [address] Rodríguez Richardson MD [address] [place] [address] [place] [address] Social History Tobacco Use Types [...] Visit [facility] [address] [facility] [address] Rodríguez Richardson MD [address] [place] [address] [place] [address] documented as of this encounter Visit Diagnoses Not on filedocumented in this encounter Care Teams Table Assembler Relationship Specialty Start Date End Date Radha Gao MD [address] [place] [address] PCP - General Internal Medicine 02/04/22 documented as of this encounter
--- OUTSIDE RECORDS SUMMARY | 2025-04-13 11:51 | XMS_ITS | Encounter Summary ---
Author Organization [facility] Address [address] [place] [address] Phone Care Team Providers Care Management And Budget Analyst Name Role Phone Radha Gao MD Primary Care Provider [phone] Encounter Details Date Type Department Care Team (Late st Contact Info) Description 02/08/2022 Documentation Only [facility] [address] [place] [address] Rodríguez Richardson MD [address] [place] [address] [place] [address] Social History Tobacco Use Types [...] Visit [facility] [address] [place] [address] Rodríguez Richardson MD [address] [place] [address] [place] [address] documented as of this encounter Visit Diagnoses Not on filedocumented in this encounter Care Teams Management And Budget Analyst Relationship Specialty Start Date End Date Radha Gao MD [address] [place] [address] PCP - General Internal Medicine 02/04/22 documented as of this encounter
--- OUTSIDE RECORDS SUMMARY | 2025-04-13 11:51 | XMS_ITS | Clinical Summary ---
Author Organization [facility] Address [address] [place] [address] Phone Care Team Providers Care Hydroelectric Station Operator Name Role Phone Radha Gao MD Primary Care Provider [phone] Allergies No known active allergies Medications atorvastatin (LIPITOR) 80 MG tablet Take 80 mg by mouth daily 01/15/2020 Active metoprolol [...] each day 90 tablet 3 06/30/2023 Active spironolactone (ALDACTONE) 25 MG tablet Take 25 mg by mouth 1 (one) time each day 12/22/2024 Active Active Problems Problem Noted Date Diagnosed Date Hypokalemia 02/11/2022 Hypertensive disorder 01/31/2020 Encounters Date Type Department Care Team Description 02/08/2025 1:30 PM EDT Office Visit [facility] [address] [place] [address] Rodríguez Richardson MD Hypertensive disorder (Primary Dx) 02/08/2025 Documentation Only [facility] [address] [place] [address] Siena Garcia 02/07/2025 Documentation Only [facility] [address] [place] [address] Siena Garcia 02/01/2025 Documentation Only [facility] [address] [place] [address] JoseSiena trujillo from Last 3 Months Family History Medical [...] Care Team (Late st Contact Info) Description 02/07/2026 1:30 PM EDT Office Visit [facility] [address] [place] [address] Rodríguez Richardson MD [address] [place] [address] [place] [address] Health Maintenance Due Date Last Done Comments Breast Cancer Screening 1954 Colorectal Cancer Screening: Annual FOBT 2003 Colorectal Cancer Screening: Colonoscopy 2003 Colorectal Cancer Screening: Sigmoidoscopy 2003 Pneumococcal Vaccine: 50+ Ye ars (1 of 1 - PCV) 2004 Influenza Vaccine (Season Ended) 2025 Hepatitis B Vaccine Aged Out No longe r eligible based on patient's age to complete this topic Insurance [facility] Medicare Care Teams Hydroelectric Station Operator Relationship Specialty Start Date End Date Radha Gao MD [address] [place] [address] PCP - General Internal Medicine 02/04/22
--- OUTSIDE RECORDS SUMMARY | 2025-04-13 11:51 | XMS_ITS | Encounter Summary ---
Author Organization [facility] Address [address] [place] [address] Phone Care Team Providers Care Guest Services Name Role Phone Radha Gao MD Primary Care Provider [phone] Encounter Details Date Type Department Care Team (Late Contact Info) Description 04/05/2024 Documentation Only [facility] [address] [facility] [place] [address] Adia Brown [address] [place] [address] Social History Tobacco Use Types [...] Visit [facility] [address] [facility] [place] [address] Rodríguez Richardson MD [address] [facility] [place] [address] documented as of this encounter Visit Diagnoses Not on filedocumented in this encounter Care Teams Guest Services Relationship Specialty Start Date End Date Radha Gao MD [address] [place] [address] PCP - General Internal Medicine 02/04/22 documented as of this encounter
[2025-04-13 13:15] LABS: MANUAL DIFF FLAG NO
[2025-04-13 13:19] LABS: Basophils Percent Auto 0.5 % (0-2); Eosinophils Absolute Auto 0.2 X10*3/uL (0.0-0.4); Hematocrit 41.1 % (37.0-47.0); Hemoglobin 13.9 g/dl (12.0-16.0); Imm Gran Abs Auto 0.03 X10*3/uL (0.00-0.03); Imm Gran Pct Auto 0.4 % (0.0-0.4); Lymphocytes Absolute Auto 2.8 X10*3/uL (1.2-4.9); Lymphocytes Percent Auto 37.3 % (20-40); Mean Corpuscular HGB Conc 33.8 g/dl (31.0-35.0); Mean Corpuscular Hemoglobin 30.7 pg (27.0-33.0); Mean Corpuscular Volume 90.7 fL (80.0-98.0); Mean Platelet Volume 10.3 fL (9.4-12.3); Monocytes Absolute Auto 0.8 X10*3/uL (0.1-1.2); Monocytes Percent Auto 10.8 % (2-11); Neutrophils Absolute Auto 3.5 x10*3/uL (2.0-8.3); Platelet Count 270 X10*3/uL (160-400); Red Blood Count 4.53 X10*6/uL (4.20-5.50); Red Cell Distribution Width 12.7 % (11.0-16.0); White Blood Count 7.4 X10*3/uL (4.8-10.8)
[2025-04-13 15:59] LABS: Alanine Aminotransferase 40 U/L (0-31); Albumin Level 4.6 g/dL (3.5-5.0); Alkaline Phosphatase 87 U/L (39-117); Anion Gap 11 (12-20); Aspartate Amino Transferase 33 U/L (5-31); Blood Urea Nitrogen 16 mg/dL (9-16); Calcium 10.1 mg/dL (8.4-10.2); Carbon Dioxide 28 mmol/L (22-29); Chloride 107 mmol/L (96-108); Cholesterol 147 mg/dL (<200); Estimated Glomerular Filt Rate 50; Glucose Fasting 98 mg/dL (60-99); HDL Cholesterol 36 mg/dL (>40); LDL Cholesterol Calculated 80 mg/dL (<100); Potassium 4.6 mmol/L (3.3-5.1); Sodium 141 mmol/L (135-145); TSH reflex Free T4 2.39 uIU/mL (0.32-4.0); Total Protein 7.4 g/dL (6.5-8.0); Triglycerides 155 mg/dL (<150)
== END 2025-04-13 10:22 | disposition home or self-care (01) ==
LOC: HO.HMGCLDS 10:21
PROVIDERS: PCP Internal Medicine; Visit Provider Internal Medicine
DX: Z00.00 Encounter for general adult medical examination without abnormal findings (principal); I10 Essential (primary) hypertension; E78.5 Hyperlipidemia, unspecified
CPT/HCPCS: 36415; 80053; 80061; 84443; 85025

== ENCOUNTER 2025-04-19 12:33 | Outpatient (AMB) | payer MEDICARE, SELFPAY ==
--- NOTE | 2025-04-19 12:39 | A.OFFPC_ITS ---
Vital Signs 04/19/25 12:40 Height 5 ft 2 in Weight 166 lb BMI 30.4 BP 118/76 Blood Pressure Location Lt brachial Position Sitting Respiration 18 Pulse 75 Pulse Source Pulse Oximeter Temp 98.2 F Temp Source Oral Pulse Oximetry (%) 96 Oxygen Delivery Method Room Air Intake Visit Reasons: Annual PE - see comments-r/s from 04/04 Intake Note: Pt is here today for PE. Allergies No Known Allergies Allergy (Verified 04/19/25 12:42) Medication List - Last Reconciled 04/19/25 by Radha Gao MD alendronate 70 mg PO QWEEK amlodipine 5 mg PO DAILY atorvastatin 80 mg PO DAILY flu vacc [id number](65yr up)-PF mL IM losartan 100 mg PO DAILY metoprolol succinate ER 200 mg PO DAILY spironolactone 25 mg PO DAILY Tobacco use date assessed: 04/19/25 Fall risk assessment: No Falls in past year Last assessed Fall Risk: 04/19/25 Dental Screening Dental Screen Date: 04/19/25 Did you have a dental visit in the last 12 months?: Yes Did you have a dental problem in the last 6 months where you did not have access to dental care?: No Was dental information given to patient?: Patient has dentist HPI Annual PE - see comments-r/s from 04/04 HPI Details Patient presents for PE. [facility] Medical History (Updated 04/19/25 @ 14:44 by Radha Gao MD) Mammogram normal Normal colonoscopy Annual physical exam Normal Pap smear Anxiety and depression Hyperlipidemia Migraines HTN (hypertension) Surgical History H/O colonoscopy (~02/24/19) No pertinent past surgical history Family History Father Type 2 diabetes mellitus HTN (hypertension) Stroke Mother No problems noted. Brother HTN (hypertension) Alcoholism Brother History of heart attack Brother Cancer Maternal Grandfather Alcoholism Son No problems noted. Brother No problems noted. Social History Housing: House Patient Tobacco Use Status: Never used Tobacco e-Cigarette/Vaping Use: Never Used service: No Current occupational status: employed Cognitive needs: No Hearing needs: No Vision needs: Yes Questionnaire PHQ-9 Over the last 2 weeks, how often have you been bothered by any of the following problems? 1. Little interest or pleasure in doing things: not at all 2. Feeling down, depressed, or hopeless: not at all 3. Trouble falling or staying asleep, or sleeping too much: not at all 4. Feeling tired or having little energy: not at all 5. Poor appetite or overeating: not at all 7. Trouble concentrating on things, such as reading the newspaper or watching television: not at all 8. Moving or speaking so slowly that other people could have noticed. Or the opposite - being so fidgety or restless that you have been moving around a lot more than usual: not at all 9. Thoughts that you would be better off or of hurting yourself in some way: not at all Depression Screening Interpretation: Negative Depression Screening Done: Yes 81182 - PHQ-9 Billing: Yes Source: Developed by Drs. Manas Reddy, Bessy Hopkins, Kimani Stuart and colleagues, with an educational charly from [employer]. Thrive Questionnaire Date Thrive assessed: 04/19/25 I am a: Patient What is your living situation today?: I have a steady place to live Within the past 12 months, did the food you bought not last and you didn't have the money to get more?: I choose not to answer this question Within the past 12 months, did you worry whether your food would run out before you got money to buy more?: I choose not to answer this question Do you have trouble paying for medicines?: I choose not to answer this question Do you have trouble getting transportation to medical appointments?: I choose not to answer this question Do you have trouble paying your heating and electricity bill?: I choose not to a nswer this question Do you have trouble taking care of your child, family member or friend?: I choose not to answer this question Do you have trouble with day-to-day activities such as bathing, preparing meals, shopping, managing finances, etc.?: I choose not to answer this question Are you currently unemployed and looking for a job?: No Are you interested in more education?: No Please select the resources that you would like help with: None Currently or been in a relationship where the following occur: I choose not to answer THRIVE Score: 0 AUDIT C Alcohol Use Questionnaire (AUDIT-C) 1. How often do you have a drink containing alcohol?: Monthly or less 2. How many drinks containing alcohol do you have on a typical day when you are drinking?: 1 or 2 3. How often do you have six or more drinks on one occasion?: Never Total Score: 1 JESSICA-7 AMB Questionnaire JESSICA-7 Date JESSICA - 7 assessed: 04/19/25 Feeling nervous, anxious, or on edge: 0 = Not at all Not being able to stop or control worryin = Not at all Worrying too much about different things: 0 = Not at all Trouble relaxin = Not at all Being so restless that it is hard to sit still: 0 = Not at all Becoming easily annoyed or irritable: 0 = Not at all Feeling afraid as if something awful might happen: 0 = Not at all Total JESSICA-7 score (0-4 normal; 5-9 mild; 10-14 moderate; 15-21 severe): 0 Source: Developed by Drs. Manas Reddy, Bessy Hopkins, Kimani Stuart and colleagues, with an educational charly from [employer]. JESSICA-7 Assessment Billing JESSICA-7 Assessment Tool: JESSICA-7 Assessment 43103 Review of Systems Const All systems reviewed & are unremarkable except as noted in HPI and below Eyes Reports no additional complaints ENT Reports no additional complaints Card Reports no additional complaints Resp Reports no additional complaints GI Reports no additional complaints Reports no additional complaints Physical exam (Primary Care) Vital Signs: Last Vital Signs Temp 98.2 F 04/19/25 12:40 Pulse 75 04/19/25 12:40 Resp 18 04/19/25 12:40 BP 118/76 04/19/25 12:40 Pulse Ox 96 04/19/25 12:40 Oxygen Delivery Method Room Air 04/19/25 12:40 BMI result Body Mass Index 30.4 Tobacco/Smoking Status: Tobacco use Status Tobacco use date assessed 04/19/25 04/19/25 12:46 Patient Tobacco Use Status Never used Tobacco 04/19/25 12:39 e-Cigarette/Vaping Use Never Used 04/19/25 12:39 Depression Screening Interpretation: Negative Thrive Assessment: Date of Thrive Assessment Date Thrive assessed 04/19/25 04/19/25 12:46 Currently or been in a relationship where the following occur: I choose not to answer Const General: no acute distress HENMT Head: Yes normal to inspection Face and sinus: Yes normal facial exam Mouth: Normal oral and palatal mucosa present Eyes General: appearance normal, both eyes and all related structures Neck Neck: Yes no lymphadenopathy and Yes supple Resp Effort & Inspection: normal respiratory effort Auscultation: clear to auscultation bilaterally Cardio Rhythm: regular rhythm Heart sounds: S1 normal heart sound present and S2 normal heart sound present GI Inspection: Yes normal to inspection Palpation (GI): Soft to palpation Percussion: Yes normal to percussion Auscultation: normal bowel sounds Coding Level of Care Code Est Pt Prev Care >65y(35634) Diagnoses Osteoporosis M81.0 HTN (hypertension) I10 Hyperlipidemia E78.5 Annual physical exam Z00.00 Additional Codes JESSICA-7 Assessment Billing - JESSICA-7 Assessment Tool: JESSICA-7 Assessment 71400 ([id number]) PHQ-9 - 82258 - PHQ-9 Billing: Yes ([id number]) Assessment & Plan Assessment & Plan (1) Osteoporosis: Comment: DEXA 12/16 T score -2.8 L femoral neck, started Fosamax 01/16 Code(s): M81.0 - Age-related osteoporosis without current pathological fracture Category: Medical Plan: Continue Fosamax vitamin-D weight-bearing exercises check DEXA (2) HTN (hypertension): Comment: hydrochlorothiazide was discontinued because of hypokalemia 03/17 Code(s): I10 - Essential (primary) hypertension Category: Medical Plan: Continue current medications (3) Hyperlipidemia: Code(s): E78.5 - Hyperlipidemia, unspecified Category: Medical Plan: Continue statin (4) Annual physical exam: Code(s): Z00.00 - Encounter for general adult medical examination without abnormal findings Category: Medical Plan: Well-balanced diet regular physical activity discussed with the patient she is up-to-date with the mammogram colonoscopy. Patient will return in 6 months with a fasting labs before Orders: Orders Vitamin D 25-OH Total 6 Months E78.5 - Hyperlipidemia, unspecified, I10 - Essential (primary) hypertension Lipid Panel 6 Months E78.5 - Hyperlipidemia, unspecified, I10 - Essential (primary) hypertension XR DEXA axial skeleton Today M81.0 - Age-related osteoporosis without current pathological fracture Comprehensive [place]. Panel Fast 6 Months E78.5 - Hyperlipidemia, unspecified, I10 - Essential (primary) hypertension Medications: Refilled spironolactone 25 mg PO DAILY 90 tabs 3RF spironolactone 25 mg PO DAILY 90 tabs 3RF alendronate 70 mg PO QWEEK 12 tabs 3RF
--- OUTSIDE RECORDS SUMMARY | 2025-04-19 12:39 | XMS_ITS | Encounter Summary ---
Author Organization [facility] Address [address] [place] [address] Phone Care Team Providers Care Rebeamer Name Role Phone Radha Gao MD Primary Care Provider Encounter Details Date Type Department Care Team (Late st Contact Info) Description 02/07/2023 Documentation Only [facility] [address] [place] [address] Rodríguez Richardson MD [address] [place] [address] [place] [address] Social History Tobacco Use Types [...] [facility] [address] [place] [address] Rodríguez Richardson MD [address] [place] [address] [place] [address] documented as of this encounter Visit Diagnoses Not on filedocumented in this encounter Care Teams Rebeamer Relationship Specialty Start Date End Date Radha Gao MD [address] [place] [address] PCP - General Internal Medicine 02/04/22 documented as of this encounter
[2025-04-19 12:40] VITALS: BP 118/76; PULSE 75; RESP 18; TEMP 36.8; O2SAT 96; BMI 30.4
== END 2025-04-19 13:38 | disposition home or self-care (01) ==
LOC: HO.HMCC 12:34
PROVIDERS: PCP Internal Medicine; Visit Provider Internal Medicine
DX: M81.0 Age-related osteoporosis without current pathological fracture (principal); I10 Essential (primary) hypertension; E78.5 Hyperlipidemia, unspecified; Z00.00 Encounter for general adult medical examination without abnormal findings

== ENCOUNTER → 2025-04-19 12:33 | Outpatient (BNVA) | payer MEDICARE, SELFPAY | PROVIDERS: PCP Internal Medicine; Visit Provider Internal Medicine | DX: Z00.00 Encounter for general adult medical examination without abnormal findings (principal); E78.5 Hyperlipidemia, unspecified; I10 Essential (primary) hypertension; M81.0 Age-related osteoporosis without current pathological fracture | CPT/HCPCS: 96127; 99397 ==

== ENCOUNTER → 2025-05-25 11:30 | Outpatient (BNV) | payer MEDICARE, SELFPAY | PROVIDERS: PCP Internal Medicine; Visit Provider Radiology Diagnostic Radiology | DX: E28.39 Other primary ovarian failure (principal) | CPT/HCPCS: 77080 ==

== ENCOUNTER 2025-05-25 11:32 | Outpatient (REF) | payer MEDICARE, SELFPAY ==
--- NOTE | ~2025-05-25 | MM_ITS ---
EXAMINATION: DXA BONE DENSITY AXIAL HISTORY: M81.0 - Age-related osteoporosis without current pathological fracture TECHNIQUE: Endorse Dual energy absorptiometry (DEXA) of the lumbar spine, total left hip, and femoral neck was performed. COMPARISON: Comparison is made with the prior examination dated 12/03/2022. FINDINGS: The bone mineral density of the lumbar spine is 1.211 g/cm2, corresponding to a T-score of 0.3, and a Z-score of 1.6. This is indicative of normal bone mineral density. This represents a BMD change of 7.2% compared to the prior exam. This is statistically significant. The bone mineral density of the left total hip is 0.987 g/cm2, corresponding to a T-score of -0.2, and a Z-score of 1.1. This is indicative of normal bone mineral density. This represents a BMD change of 22.5% compared to the prior exam. This is statistically significant. The bone mineral density of the left femoral neck is 0.847 g/cm2, corresponding to a T-score of -1.4, and a Z-score of 0.1. This is indicative of osteopenia. This represents a BMD change of 31.7% compared to the prior exam. FRACTURE RISK: The FRAX index suggests a ten year probability of major osteoporotic fracture of 9.5%, and of hip fracture 1.3%. MM/XR DEXA axial skeleton IMPRESSION: Based on bone mineral density, and according to World Health Organization (WHO) criteria, the diagnosis is consistent with osteopenia. Statistically, 68% of repeat scans fall within 1 SD (+/- 0.010 g/cm2 for AP spine L1-L4) and 1 SD (+/- 0.012 g/cm2 for femur total) FRAX is a trademark of the [employer]'s [place] for Metabolic Bone Disease, a World Health Organization (WHO) Collaborating Center. Electronically signed by: Manas Ramirez MD 05/26/2025 07:04 AM EDT
--- OUTSIDE RECORDS SUMMARY | 2025-05-25 12:20 | XMS_ITS | Encounter Summary ---
Author Organization [facility] Address [address] [place] [address] Phone Care Team Providers Care Financial Analyst Name Role Phone Radha Gao MD Primary Care Provider [phone] Encounter Details Date Type Department Care Team (Late st Contact Info) Description 02/07/2023 Documentation Only [facility] [address] [place] [address] Rodríguez Richardson MD [address] [place] [address] [place] [address] Social History Tobacco Use Types [...] Visit [facility] [address] [place] [address] Rodríguez Richardson MD [address] [place] [address] [place] [address] documented as of this encounter Visit Diagnoses Not on filedocumented in this encounter Care Teams Financial Analyst Relationship Specialty Start Date End Date Radha Gao MD [address] [place] [address] PCP - General Internal Medicine 02/04/22 documented as of this encounter
--- OUTSIDE RECORDS SUMMARY | 2025-05-25 12:20 | XMS_ITS | Patient Health Record ---
Author Organization [facility] Address [address] [place] [address] Care Team Providers Care Hydroelectric Station Chief Name Role Phone TRAVIS WELLER Primary Care Provider Rl Singh Jr Unavailable [phone] Reason For Referral No Information Medications Medication SIG (Take, Route, Frequency, Duration) Notes Start Date End Date Status Colyte with Flavor Packs 240 GM As direc addison Orally Over the specified time. for 1 day(s) Active Metoprolol Succinate ER 200 MG 1 tablet Orally Once a day Active Atorvastatin Calcium 80 MG 1 tablet Oral ly Once a day Active hydroCHLOROthiazide 25 MG 1 tablet in th e morning Orally Once a day Active Irbesartan 300 MG 1 tablet Orally Once a day Active amLODIPine Besylate 5 MG 1 tablet Orally Once a day Active Immunizations Vaccine Route Administration Date Status Comme nts Influenza Unknown 09/07/2018 Administered Social History Tobacco Use: Social History Observation Description Date Details (start date - stop date) Never Smoker NA - NA Tobacco Use/Smoking Question Answer Notes Patient is a nonsmoker Alcohol Screen Question Answer Notes Did you have a drink contain ing alcohol in the past year? Yes How often did you have a dri nk containing alcohol in the past year? Monthly or less (1 point) How many drinks did you have on a typical day when you were drinking in the past year? 1 or 2 drinks (0 point) How often did you have 6 or more drinks on one occasion in the past year? Never (0 point) Points 1 Interpretation Negative Problems Problem Type SNOMED Code ICD Code Onset Dates Problem Status W/U Status Risk Notes Problem [id number] Colon cancer screening (Z12.11) Active confirmed Problem [id number] snf current use of diuretic (Z79.899) Active confirmed Plan Of Treatment Future Test Test Name Order Date COLONOSCOPY 11/04/2018 Insurance Providers Payer Name Payer Address Payer Phone Subscriber Number Group Number Insured Name Patient Relationship to Insured Coverage Start Date Coverage End Date [facility] [address] [address] [place], [place] [id number] YEE BOSS Self - patient is the insured Medical (General) History Medical History History ICD Code elevated cholesterol hypertension
== END 2025-05-25 11:33 | disposition home or self-care (01) ==
LOC: HO.MAMMO 11:32
PROVIDERS: PCP Internal Medicine; Visit Provider Internal Medicine
DX: M81.0 Age-related osteoporosis without current pathological fracture (principal)
CPT/HCPCS: 77080

== ENCOUNTER 2025-10-13 10:18 | Outpatient (REF) | payer MEDICARE, SELFPAY ==
[2025-10-13 13:45] LABS: Alanine Aminotransferase 32 U/L (0-31); Albumin Level 4.5 g/dL (3.5-5.0); Alkaline Phosphatase 95 U/L (39-117); Anion Gap 12 (12-20); Aspartate Amino Transferase 29 U/L (5-31); Blood Urea Nitrogen 21 mg/dL (9-16); Calcium 10.1 mg/dL (8.4-10.2); Carbon Dioxide 28 mmol/L (22-29); Chloride 107 mmol/L (96-108); Cholesterol 141 mg/dL (<200); Estimated Glomerular Filt Rate 47; HDL Cholesterol 33 mg/dL (>40); Potassium 4.1 mmol/L (3.3-5.1); Sodium 143 mmol/L (135-145); Total Protein 7.2 g/dL (6.5-8.0); Triglycerides 139 mg/dL (<150)
--- OUTSIDE RECORDS SUMMARY | 2025-10-13 15:09 | XMS_ITS | Encounter Summary ---
Author Organization [facility] Address [address] [place] [address] Phone Care Team Providers Care Bindery Machine Setter/Set Up Operator Name Role Phone Radha Gao MD Primary Care Provider [phone] Encounter Details Date Type Department Care Team (Late Contact Info) Description 02/09/2024 Documentation Only [facility] [address] [place] [address] Adia Brown [address] [place] [address] Social History Tobacco Use Types [...] Visit [facility] [address] [place] [address] Rodríguez Richardson MD [address] [place] [address] documented as of this encounter Visit Diagnoses Not on filedocumented in this encounter Care Teams Bindery Machine Setter/Set Up Operator Relationship Specialty Start Date End Date Radha Gao MD [address] [place] [address] PCP - General Internal Medicine 02/04/22 documented as of this encounter
--- OUTSIDE RECORDS SUMMARY | 2025-10-13 15:09 | XMS_ITS | Encounter Summary ---
Author Organization [facility] Address [address] [place] [address] Phone Care Team Providers Care Digital Media Designer Name Role Phone Radha Goa MD Primary Care Provider [phone] Encounter Details Date Type Department Care Team (Late st Contact Info) Description 02/07/2023 Documentation Only [facility] [address] [place] [address] Rodríguez Richardson MD [address] [place] [address] [place] [address] Social History Tobacco Use Types [...] Visit [facility] [address] [place] [address] Rodríguez Richardson MD [address] [place] [address] [place] [address] documented as of this encounter Visit Diagnoses Not on filedocumented in this encounter Care Teams Digital Media Designer Relationship Specialty Start Date End Date Radha Gao MD [address] [place] [address] PCP - General Internal Medicine 02/04/22 documented as of this encounter
--- OUTSIDE RECORDS SUMMARY | 2025-10-13 15:09 | XMS_ITS | Encounter Summary ---
Author Organization [facility] Address [address] [place] [address] Phone Care Team Providers Care Forgeman Helper Name Role Phone Radha Gao MD Primary Care Provider [phone] Encounter Details Date Type Department Care Team (Late st Contact Info) Description 02/08/2025 Documentation Only [facility] [address] [place] [address] Siena Garcia [address] [place] [address] Social History Tobacco Use Types Packs/Day [...] Visit [facility] [address] [place] [address] Rodríguez Richardson MD [address] [place] [address] [place] [address] documented as of this encounter Visit Diagnoses Not on filedocumented in this encounter Care Teams Forgeman Helper Relationship Specialty Start Date End Date Radha Gao MD [address] [place] [address] PCP - General Internal Medicine 02/04/22 documented as of this encounter
--- OUTSIDE RECORDS SUMMARY | 2025-10-13 15:09 | XMS_ITS | Encounter Summary ---
Author Organization [facility] Address [address] [place] [address] Phone Care Team Providers Care Transportation Driver Name Role Phone Radha Gao MD Primary Care Provider [phone] Encounter Details Date Type Department Care Team (Late st Contact Info) Description 02/11/2023 Documentation Only [facility] [address] [place] [address] Rodríguez Richardson MD [address] [place] [address] [place] [address] Social History Tobacco Use Types [...] Visit [facility] [address] [place] [address] Rodríguez Richardson MD [address] [place] [address] [place] [address] documented as of this encounter Visit Diagnoses Not on filedocumented in this encounter Care Teams Transportation Driver Relationship Specialty Start Date End Date Radha Gao MD [address] [place] [address] PCP - General Internal Medicine 02/04/22 documented as of this encounter
--- OUTSIDE RECORDS SUMMARY | 2025-10-13 15:10 | XMS_ITS | Clinical Summary ---
Author Organization [facility] Address [address] [place] [address] [place] [address] Phone Care Team Providers Care Media Production Operator Name Role Phone Radha Gao MD Primary Care Provider [phone] Allergies No known active allergies Medications atorvastatin [...] Diagnosed Date Hypokalemia 02/11/2022 Hypertensive disorder 01/31/2020 Family History Medical History Relation Comments Diabetes [...] Visit [facility], [address] [place] [address] Rodríguez Richardson MD [address] [place] [address] Health Maintenance Due Date Last Done Comments Breast Cancer Screening 1954 Colorectal Cancer Screening: Annual FOBT 2003 Colorectal Cancer Screening: Colonoscopy 2003 Colorectal Cancer Screening: Sigmoidoscopy 2003 Pneumococcal Vaccine: 50+ Ye ars (1 of 1 - PCV) 2004 Influenza Vaccine (#1) 2025 Hepatitis B Vaccine Aged Out No longe r eligible based on patient's age to complete this topic Insurance [facility] Medicare Care Teams Media Production Operator Relationship Specialty Start Date End Date Radha Gao MD [address] [place] [address] PCP - General Internal Medicine 02/04/22
--- OUTSIDE RECORDS SUMMARY | 2025-10-13 15:10 | XMS_ITS | Encounter Summary ---
Author Organization [facility] Address [address] [place] [address] Phone Care Team Providers Care Commission Broker Name Role Phone Radha Gao MD Primary Care Provider [phone] Encounter Details Date Type Department Care Team (Late st Contact Info) Description 02/01/2025 Documentation Only [facility] [address] [place] [address] Siena Garcia [address] [place] [address] Social History Tobacco Use Types Packs/Day [...] Visit [facility] [address] [place] [address] Rodríguez Richardson MD [address] [place] [address] [place] [address] documented as of this encounter Visit Diagnoses Not on filedocumented in this encounter Care Teams Commission Broker Relationship Specialty Start Date End Date Radha Gao MD [address] [place] [address] PCP - General Internal Medicine 02/04/22 documented as of this encounter
--- OUTSIDE RECORDS SUMMARY | 2025-10-13 15:10 | XMS_ITS | Encounter Summary ---
Author Organization [facility] Address [address] [place] [address] Phone Care Team Providers Care Behavioral Health Care Coordinator Name Role Phone Radha Gao MD Primary Care Provider [phone] Encounter Details Date Type Department Care Team (Late st Contact Info) Description 02/07/2025 Documentation Only [facility] [address] [place] [address] Siena Garcia [address] [place] [address] Social History Tobacco Use Types Packs/Day [...] Visit [facility] [address] [place] [address] Rodríguez Richardson MD [address] [place] [address] [place] [address] documented as of this encounter Visit Diagnoses Not on filedocumented in this encounter Care Teams Behavioral Health Care Coordinator Relationship Specialty Start Date End Date Radha Gao MD [address] [place] [address] PCP - General Internal Medicine 02/04/22 documented as of this encounter
--- OUTSIDE RECORDS SUMMARY | 2025-10-13 15:10 | XMS_ITS | Encounter Summary ---
Author Organization [facility] Address [address] [place] [address] Phone Care Team Providers Care City Auditor Name Role Phone Radha Gao MD Primary Care Provider [phone] Encounter Details Date Type Department Care Team (Late st Contact Info) Description 02/08/2022 Documentation Only [facility] [address] [place] [address] Rodríguez Richardson MD [address] [place] [address] [place] [address] Social History Tobacco Use Types [...] [facility] [address] [place] [address] Rodríguez Richardson MD [address] [place] [address] [place] [address] documented as of this encounter Visit Diagnoses Not on filedocumented in this encounter Care Teams City Auditor Relationship Specialty Start Date End Date Radha Gao MD [address] [place] [address] PCP - General Internal Medicine 02/04/22 documented as of this encounter
--- OUTSIDE RECORDS SUMMARY | 2025-10-13 15:10 | XMS_ITS | Encounter Summary ---
Author Organization [facility] Address [address] [place] [address] Phone Care Team Providers Care Gunite Nozzle Operator Name Role Phone Radha Gao MD Primary Care Provider [phone] Encounter Details Date Type Department Care Team (Late Contact Info) Description 04/05/2024 Documentation Only [facility] [address] [place] [address] Adia Brown [address] [place] [address] Social History Tobacco Use Types [...] Visit [facility] [address] [place] [address] Rodríguez Richardson MD [address] [place] [address] documented as of this encounter Visit Diagnoses Not on filedocumented in this encounter Care Teams Gunite Nozzle Operator Relationship Specialty Start Date End Date Radha Gao MD [address] [place] [address] PCP - General Internal Medicine 02/04/22 documented as of this encounter
--- OUTSIDE RECORDS SUMMARY | 2025-10-13 15:10 | XMS_ITS | Encounter Summary ---
Author Organization [facility] Address [address] [place] [address] Phone Care Team Providers Care Hand Counter Name Role Phone Radha Gao MD Primary Care Provider [phone] Encounter Details Date Type Department Care Team (Late Contact Info) Description 04/01/2024 Documentation Only [facility] [address] [place] [address] Adia Brown [address] [place] [address] Social History Tobacco Use Types [...] [facility] [address] [place] [address] Rodríguez Richardson MD [address] [place] [address] documented as of this encounter Visit Diagnoses Not on filedocumented in this encounter Care Teams Hand Counter Relationship Specialty Start Date End Date Radha Gao MD [address] [place] [address] PCP - General Internal Medicine 02/04/22 documented as of this encounter
--- OUTSIDE RECORDS SUMMARY | 2025-10-13 15:10 | XMS_ITS | Encounter Summary ---
Author Organization [facility] Address [address] [place] [address] Phone Care Team Providers Care Steam Frame Operator Name Role Phone Radha Gao MD Primary Care Provider [phone] Encounter Details Date Type Department Care Team (Late Contact Info) Description 03/12/2024 Documentation Only [facility] [address] [place] [address] Adia Brown [address] [place] [address] Social History Tobacco Use Types [...] Visit [facility] [address] [place] [address] Rodríguez Richardson MD [address] [place] [address] documented as of this encounter Visit Diagnoses Not on filedocumented in this encounter Care Teams Steam Frame Operator Relationship Specialty Start Date End Date Radha Gao MD [address] [place] [address] PCP - General Internal Medicine 02/04/22 documented as of this encounter
--- OUTSIDE RECORDS SUMMARY | 2025-10-13 15:11 | XMS_ITS | Encounter Summary ---
Author Organization [facility] Address [address] [place] [address] Phone Care Team Providers Care Photography Colorist Name Role Phone Radha Gao MD Primary Care Provider [phone] Encounter Details Date Type Department Care Team (Late st Contact Info) Description 02/08/2022 Documentation Only [facility] [address] [place] [address] Rodríguez Richardson MD [address] [place] [address] [place] [address] Social History Tobacco Use Types [...] Visit [facility] [address] [place] [address] Rodríguez Richardson MD [address] [place] [address] [place] [address] documented as of this encounter Visit Diagnoses Not on filedocumented in this encounter Care Teams Photography Colorist Relationship Specialty Start Date End Date Radha Gao MD [address] [place] [address] PCP - General Internal Medicine 02/04/22 documented as of this encounter
--- OUTSIDE RECORDS SUMMARY | 2025-10-13 15:11 | XMS_ITS | Encounter Summary ---
Author Organization [facility] Address [address] [place] [address] Phone Care Team Providers Care Field Gauger Name Role Phone Radha Gao MD Primary Care Provider [phone] Encounter Details Date Type Department Care Team (Late st Contact Info) Description 02/08/2022 Documentation Only [facility] [address] [place] [address] Rodríguez Richardson MD [address] [place] [address] [place] [address] Social History Tobacco Use Types [...] Of [facility] [address] [place] [address] Rodríguez Richardson MD [address] [place] [address] [place] [address] documented as of this encounter Visit Diagnoses Not on filedocumented in this encounter Care Teams Field Gauger Relationship Specialty Start Date End Date Radha Gao MD [address] [place] [address] PCP - General Internal Medicine 02/04/22 documented as of this encounter
== END 2025-10-13 10:19 | disposition home or self-care (01) ==
LOC: HO.HMGCLDS 10:18
PROVIDERS: PCP Internal Medicine; Visit Provider Internal Medicine
DX: Z13.21 Encounter for screening for nutritional disorder (principal); E78.5 Hyperlipidemia, unspecified; I10 Essential (primary) hypertension
CPT/HCPCS: 36415; 80053; 80061; 82306

== ENCOUNTER 2025-10-17 13:04 | Outpatient (AMB) | payer MEDICARE, SELFPAY ==
[2025-10-17 13:41] VITALS: BP 120/80; PULSE 73; RESP 16; O2SAT 96; BMI 30.4
--- NOTE | 2025-10-17 13:42 | A.OFFPC_ITS ---
Vital Signs 10/17/25 13:41 Height 5 ft 2 in Weight 166 lb BMI 30.4 BP 120/80 Blood Pressure Location Rt brachial Position Sitting Respiration 16 Pulse 73 Pulse Source Pulse Oximeter Pulse Oximetry (%) 96 Oxygen Delivery Method Room Air Intake Visit Reasons: 6m follow up Intake Note: Pt is here today for 6 months follow up visit. Allergies No Known Allergies Allergy (Verified 10/17/25 13:42) Medication List - Last Reconciled 10/17/25 by Radha Gao MD alendronate 70 mg PO QWEEK amlodipine 5 mg PO DAILY atorvastatin 80 mg PO DAILY flu vacc [id number](65yr up)-PF mL IM losartan 100 mg PO DAILY metoprolol succinate ER 200 mg PO DAILY spironolactone 25 mg PO DAILY Tobacco use date assessed: 10/17/25 Fall risk assessment: No Falls in past year Last assessed Fall Risk: 10/17/25 Dental Screening Dental Screen Date: 04/19/25 HPI 6m follow up HPI Details Pt presents for f/u HTN, hyperlipid, stable on meds. Patient has been taking alendronate and vitamin D3 for osteoporosis [facility] Medical History (Updated 10/17/25 @ 19:23 by Radha Gao MD) Osteoporosis Mammogram normal Normal colonoscopy Annual physical exam Normal Pap smear Anxiety and depression Hyperlipidemia Migraines HTN (hypertension) Surgical History H/O colonoscopy (~02/24/19) No pertinent past surgical history Family History Father Type 2 diabetes mellitus HTN (hypertension) Stroke Mother No problems noted. Brother HTN (hypertension) Alcoholism Brother History of heart attack Brother Cancer Maternal Grandfather Alcoholism Son No problems noted. Brother No problems noted. Social History Housing: House Patient Tobacco Use Status: Never used Tobacco e-Cigarette/Vaping Use: Never Used service: No Current occupational status: employed Cognitive needs: No Hearing needs: No Vision needs: Yes Questionnaire PHQ-9 Over the last 2 weeks, how often have you been bothered by any of the following problems? 1. Little interest or pleasure in doing things: not at all 2. Feeling down, depressed, or hopeless: not at all 3. Trouble falling or staying asleep, or sleeping too much: not at all 4. Feeling tired or having little energy: not at all 5. Poor appetite or overeating: not at all 6. Feeling bad about yourself - or that you are a failure or have let yourself or your family down: not at all 7. Trouble concentrating on things, such as reading the newspaper or watching television: not at all 8. Moving or speaking so slowly that other people could have noticed. Or the opposite - being so fidgety or restless that you have been moving around a lot more than usual: not at all 9. Thoughts that you would be better off or of hurting yourself in some way: not at all Total score: 0 Source: Developed by Drs. Manas Reddy, Bessy Hopkins, Kimani Stuart and colleagues, with an educational charly from [employer]. Thrive Questionnaire Date Thrive assessed: 04/19/25 I am a: Patient What is your living situation today?: I have a steady place to live Within the past 12 months, did the food you bought not last and you didn't have the money to get more?: Never true THRIVE Score: 0 JESSICA-7 AMB Questionnaire JESSICA-7 Date JESSICA - 7 assessed: 04/19/25 Source: Developed by Drs. Manas Reddy, Bessy Hopkins, Kimani Stuart and colleagues, with an educational charly from [employer]. Review of Systems Const All systems reviewed & are unremarkable except as noted in HPI and below Eyes Reports no additional complaints ENT Reports no additional complaints Card Reports no additional complaints Resp Reports no additional complaints GI Reports no additional complaints Reports no additional complaints Physical exam (Primary Care) Vital Signs: Last Vital Signs Pulse 73 10/17/25 13:41 Resp 16 10/17/25 13:41 BP 120/80 10/17/25 13:41 Pulse Ox 96 10/17/25 13:41 Oxygen Delivery Method Room Air 10/17/25 13:41 BMI result Body Mass Index 30.4 Tobacco/Smoking Status: Tobacco use Status Tobacco use date assessed 10/17/25 10/17/25 13:46 Patient Tobacco Use Status Never used Tobacco 10/17/25 13:46 e-Cigarette/Vaping Use Never Used 10/17/25 13:46 PHQ-9: PHQ-9 Score PHQ-9: Total score 0 10/17/25 14:09 Thrive Assessment: Date of Thrive Assessment Date Thrive assessed 04/19/25 10/17/25 13:46 Const General: no acute distress HENMT Head: Yes normal to inspection Eyes General: appearance normal, both eyes and all related structures Neck Neck: Yes no lymphadenopathy and Yes supple Resp Effort & Inspection: normal respiratory effort Auscultation: clear to auscultation bilaterally Cardio Rhythm: regular rhythm Heart sounds: S1 normal heart sound present and S2 normal heart sound present Coding Level of Care Code Complex visit Add On G2211 Diagnoses Osteoporosis M81.0 HTN (hypertension) I10 Hyperlipidemia E78.5 Assessment & Plan Assessment & Plan (1) Osteoporosis: Comment: DEXA 12/16 T score -2.8 L femoral neck, started Fosamax 01/16, DEXA 05/2025 T score -1.4 femoral neck Code(s): M81.0 - Age-related osteoporosis without current pathological fracture Category: Medical Plan: Continue vitamin-D and alendronate, weight-bearing exercise (2) HTN (hypertension): Comment: hydrochlorothiazide was discontinued because of hypokalemia 03/17 Code(s): I10 - Essential (primary) hypertension Category: Medical Plan: Continue current medications (3) Hyperlipidemia: Code(s): E78.5 - Hyperlipidemia, unspecified Category: Medical Plan: Continue statin Orders: Orders Comprehensive [place]. Panel Fast 6 Months E55.9 - Vitamin D deficiency, unspecified, E78.5 - Hyperlipidemia, unspecified, I10 - Essential (primary) hypertension, M81.0 - Age-related osteoporosis without current pathological fracture, R79.89 - Other specified abnormal findings of blood chemistry Lipid Panel 6 Months E55.9 - Vitamin D deficiency, unspecified, E78.5 - H yperlipidemia, unspecified, I10 - Essential (primary) hypertension, M81.0 - Age- related osteoporosis without current pathological fracture, R79.89 - Other specified abnormal findings of blood chemistry Complete Blood Count Auto Diff 6 Months E55.9 - Vitamin D deficiency, unspecified, E78.5 - Hyperlipidemia, unspecified, I10 - Essential (primary) hypertension, M81.0 - Age-related osteoporosis without current pathological fracture, R79.89 - Other specified abnormal findings of blood chemistry TSH reflex Free T4 6 Months E55.9 - Vitamin D deficiency, unspecified, E78.5 - Hyperlipidemia, unspecified, I10 - Essential (primary) hypertension, M81.0 - Age-related osteoporosis without current pathological fracture, R79.89 - Other specified abnormal findings of blood chemistry UA w Microscopic 6 Months E55.9 - Vitamin D deficiency, unspecified, E78.5 - Hyperlipidemia, unspecified, I10 - Essential (primary) hypertension, M81.0 - Age-related osteoporosis without current pathological fracture, R79.89 - Other specified abnormal findings of blood chemistry Vitamin D 25-OH Total 6 Months E55.9 - Vitamin D deficiency, unspecified, E78.5 - Hyperlipidemia, unspecified, I10 - Essential (primary) hypertension, M81.0 - Age-related osteoporosis without current pathological fracture, R79.89 - Other specified abnormal findings of blood chemistry
== END 2025-10-17 16:45 | disposition home or self-care (01) ==
LOC: HO.HMCC 13:05
PROVIDERS: PCP Internal Medicine; Visit Provider Internal Medicine
DX: M81.0 Age-related osteoporosis without current pathological fracture (principal); I10 Essential (primary) hypertension; E78.5 Hyperlipidemia, unspecified

== ENCOUNTER → 2025-10-17 13:04 | Outpatient (BNVA) | payer MEDICARE, SELFPAY | PROVIDERS: PCP Internal Medicine; Visit Provider Internal Medicine | DX: M81.0 Age-related osteoporosis without current pathological fracture (principal); I10 Essential (primary) hypertension; E78.5 Hyperlipidemia, unspecified | CPT/HCPCS: 99212 ==

== ENCOUNTER 2025-10-31 11:23 | Outpatient (REF) | payer MEDICARE, SELFPAY ==
--- NOTE | ~2025-10-31 | MM_ITS ---
EXAMINATION: MM SCREENING DIGITAL BREAST TOMOSYNTHESIS, BILATERAL CLINICAL INFORMATION: Screening. Asymptomatic. COMPARISON: Comparison made to multiple prior, most recent October 25, 2024, and most remote September 08, 2018. TECHNIQUE: Digital breast tomosynthesis is performed in mediolateral oblique and craniocaudal views along with computer-aided detection (CAD). Synthesized 2D images are generated from the tomosynthesis. FINDINGS: BREAST COMPOSITION: The breasts are heterogeneously dense, which may obscure small masses. RIGHT BREAST: Asymmetry in the retroareolar plane on the MLO view at about 3.8 cm from the nipple. No suspicious calcifications or other abnormalities are seen. LEFT BREAST: -Asymmetry in the lower breast middle depth at about 4 cm from the nipple on the MLO view. - Asymmetry in the medial breast middle depth at about 4 cm from the nipple on the CC view. Unclear if it correlates with the asymmetry seen on MLO view. - No suspicious calcifications or other abnormalities are seen. MM/MM tomosynthesis screening BI IMPRESSION: RIGHT BREAST: 1. Asymmetry along the retroareolar plane on the MLO view middle depth. LEFT BREAST: 1. Asymmetry in the lower breast middle depth on the MLO view 2. Asymmetry in the medial breast middle depth on the CC view. ASSESSMENT: BI-RADS: Category 0: Incomplete - Need additional Imaging Evaluation RECOMMENDATION: 1. Additional views of the right and left breasts 2. Targeted ultrasound if warranted after review of the additional views. 3. Radiology department staff will contact the patient for additional imaging. FOLLOW-UP: Additional Imaging required This examination should not preclude the clinical evaluation of a suspicious palpable abnormality. This patient's information was entered into a reminder system with a target due date for their next mammogram. Electronically signed by: Carolina Montero MD 10/31/2025 08:09 PM [facility]
== END 2025-10-31 11:24 | disposition home or self-care (01) ==
LOC: HO.MAMMO 11:23
PROVIDERS: PCP Internal Medicine; Visit Provider Internal Medicine
DX: Z12.31 Encounter for screening mammogram for malignant neoplasm of breast (principal)
CPT/HCPCS: 77063; 77067

== ENCOUNTER → 2025-10-31 11:30 | Outpatient (BNV) | payer MEDICARE, SELFPAY | PROVIDERS: PCP Internal Medicine; Visit Provider Radiology Body Imaging | DX: Z12.31 Encounter for screening mammogram for malignant neoplasm of breast (principal) | CPT/HCPCS: 77063; 77067 ==